=== PATIENT | female | born 1945 | race Caucasian/White ===

== ENCOUNTER 2021-08-04 20:11 | Emergency (ER) | payer MEDICARE, OTHER, SELFPAY ==
--- NOTE | ~2021-08-04 | XR_ITS ---
EXAMINATION: XR ANKLE, RIGHT CLINICAL INFORMATION: Swelling/pain COMPARISON: None TECHNIQUE: AP, lateral, and mortise views of the right ankle. FINDINGS: There is moderate lateral malleolar soft tissue swelling with a small bony fragment at the tip of the lateral malleolus most likely old injury. The ankle mortise and the subtalar joints are normal. A small calcaneal heel spur is seen. Suspect mild anterior joint effusion XR/XR ankle RT min 3V IMPRESSION: Mild to moderate lateral malleolar soft tissue swelling likely ligamentous injury. There is a small bone fragment along the medial tip of lateral malleolus likely related to old injury. Small calcaneal heel enthesophyte. Suspect mild anterior ankle joint effusion.
[2021-08-04 20:37] VITALS: BP 113/56; PULSE 81; RESP 16; TEMP 36.2; O2SAT 95; BMI 22.4
--- NOTE | 2021-08-04 20:59 | ED.LOWEXIN ---
HPI - Extremity Injury (Lower) General Chief Complaint: Extremity Injury, Lower Stated Complaint: twisted ankle? right Time Seen by Provider: 08/04/21 20:31 Source: patient Mode of arrival: ambulatory Limitations: no limitations History of Present Illness HPI Narrative: Patient comes to the emergency room complaining of a sprained ankle. Earlier today, patient was walking down the stairs, patient stepped on a loose piece of wood, nearly fall, sprain her ankle. Patient did not sustain any other injuries. Patient is not on any blood thinners. Patient states that initially she was able to bear weight, hours later the swelling and pain increased. Patient took Tylenol couple of hours ago, patient states the pain is tolerable. Patient has a walker at home which she has been using to get around her house. Related Data Allergies Allergy/AdvReac Type Severity Reaction Status Date / Time Penicillins Allergy Unknown HIVES TO Unverified 10/30/19 15:51 CILLINS Sulfa (Sulfonamide Allergy Unknown ANGIOEDEMA Unverified 10/30/19 15:51 Antibiotics) [SULFA (SULFONAMIDE ANTIBIOTICS)] Review of Systems Review of Systems: Constitutional : No Weight loss, No Fever, No Chills, No Night Sweats, No Fatigue, No Malaise ENT/Mouth : No Hearing loss, No Ear Pain, No Nasal Congestion, No Sinus Pain, No Hoarseness, No sore throat, No Rhinorrhea, No Swallowing Difficulty Eyes: No Eye Pain, No Swelling, No Redness, No Foreign Body, No Discharge, No Vision Changes Cardiovascular : No Chest Pain, No SOB, No Dyspnea on Exertion, No Orthopnea, No Edema, No Palpitations Respiratory : No Cough, No Sputum, No Wheezing, No Smoke Exposure, No Dyspnea Gastrointestinal : No Nausea, No Vomiting, No Diarrhea, No Constipation, No abdominal Pain, No Hematochezia, No Melena Genitourinary : no irregular bleeding, No Dysuria, No Urinary Frequency, No Hematuria, No Urinary Incontinence, No Urgency, No Flank Pain, No Urinary Flow Changes, No Hesitancy Musculoskeletal : Complaining of right ankle pain lateral aspect, No Myalgias, No Joint Swelling Skin : No Skin Lesions, No rash Neuro : No Weakness, No Numbness, No Paresthesias, No Loss of Consciousness, No Dizziness, No Headache Psych : No Anxiety/Panic, No Depression, No SI/HI/AH/VH, No Social Issues, Heme/Lymph: No Bruising, No Bleeding,No Lymphadenopathy Endocrine : No Polyuria, No Polydipsia, No Temperature Intolerance [facility] Social History Social History Advance Directives: No Advance Directives Information Provided: No Physical Exam Vital Signs: Vital Signs: Last Vital Signs Temp 97.2 F 08/04/21 20:37 Pulse 81 08/04/21 20:37 Resp 16 08/04/21 20:37 BP 113/56 L 08/04/21 20:37 Pulse Ox 95 08/04/21 20:37 O2 Del Method 08/04/21 20:37 BMI result Body Mass Index 22.4 Const: Other: Appearance: Alert. Oriented X3. No acute distress. well-appearing Eyes: Pupils equal, round and reactive to light. ENT: Pharynx normal. Neck: Normal inspection. Neck supple. No lymph nodes noted. No crepitus CVS: Normal heart rate and rhythm. Pulses normal. Normal S1 and S2 Respiratory: No respiratory distress. Breath sounds normal. No Wheezing. No rales Abdomen: Soft and nontender. No rigidity. No distention. Skin: Skin warm and dry. Normal skin color. Normal skin turgor. Extremities: No lower extremity edema. moderate swelling on the lateral aspect of the right ankle, mild ecchymosis, no pain to palpation over the 5th metatarsal Neuro: Oriented X 3. No motor deficit. No sensory deficit. Moving all extremities. No slurred speech. CN 2 through 12 grossly intact Psych: calm, cooperative, normal affect Course Course Course Narrative: this time, patient states that the pain is tolerable, not requesting any pain medication. X-ray pending. Mentioned above, patient has a walker that she can use.
--- NOTE | 2021-08-04 21:29 | ED.LOWEXIN ---
HPI - Extremity Injury (Lower) General Chief Complaint: Extremity Injury, Lower Stated Complaint: twisted ankle? right Time Seen by Provider: 08/04/21 20:31 Source: patient Mode of arrival: ambulatory Limitations: no limitations History of Present Illness HPI Narrative: 76 years old female came in for evaluation of right ankle injury. Patient was going downstairs missed a step of a stair and twisted her right ankle, patient was able to catch herself before she fell down, no head injury, no LOC, no neck pain. Complaining of pain on the outer side, patient unable to bear weight but able to ambulate using a walker that it sometimes she uses due to chronic right knee issue. Related Data Allergies Allergy/AdvReac Type Severity Reaction Status Date / Time Penicillins Allergy Unknown HIVES TO Unverified 10/30/19 15:51 CILLINS Sulfa (Sulfonamide Allergy Unknown ANGIOEDEMA Unverified 10/30/19 15:51 Antibiotics) [SULFA (SULFONAMIDE ANTIBIOTICS)] Review of Systems Review of Systems: All other systems are reviewed and are negative Constitutional: Reports as per HPI and Reports no additional constitutional complaints Eyes: Reports as per HPI and Reports no additional eye complaints Reports system reviewed and no additional complaints, except as documented Cardiovascular: Reports as per HPI and Reports no additional cardiovascular complaints Respiratory: Reports as per HPI and Reports no additional respiratory complaints Gastrointestinal: Reports as per HPI and Reports no additional gastrointestinal complaints Genitourinary: Reports no additional female genitourinary complaints Musculoskeletal: Reports no additional musculoskeletal complaints Skin/Breast: Reports system reviewed and no additional complaints, except as docu Psychiatric: Reports no additional psychiatric complaints Endocrine: Reports no additional endocrine complaints Hematologic/Lymphatic: Reports no additional hematologic/lymphatic complaints Allergic/Immunologic: Reports no additional allergic/immunologic complaints Reports system reviewed and no additional complaints, except as documented and Reports Abnormal speech present [facility] Social History Social History Advance Directives: No Advance Directives Information Provided: No Physical Exam Vital Signs: Vital Signs: Last Vital Signs Temp 97.2 F 08/04/21 20:37 Pulse 81 08/04/21 20:37 Resp 16 08/04/21 20:37 BP 113/56 L 08/04/21 20:37 Pulse Ox 95 08/04/21 20:37 O2 Del Method 08/04/21 20:37 BMI result Body Mass Index 22.4 Vital signs have been reviewed as appeared to be correct. Blood pressure normal. Heart rate normal. Respiration rate normal. Temperature normal. Oxygen saturation normal. Appearance: Alert. Oriented X3. No acute distress. Head: Normal external exam. Normocephalic. Atraumatic. No Dominguez signs noted. No raccoon eyes noted Eyes: PERRLA. EOMI. Conjunctiva and sclera normal. Eyelids normal. ENT: TM's Normal. Pharynx normal. Uvula midline. Moist mucous membranes. No trismus noted. No drooling noted. No muffled voice noted. Neck: Normal inspection. Neck supple. FROM. No adenopathy. Thyroid Normal. No meningeal signs. No neck mass noted. CVS: Normal heart rate and rhythm. Heart sound normal. No murmurs noted. Pulses normal throughout. Respiratory: No respiratory distress. Painless inspiration. Breath sounds normal. No wheezes/rales/rhonchi noted. Chest nontender. No accessory muscle usage noted or decreased air movement noted. Abdomen: Soft and nontender. Bowel sounds normal in all 4 quadrants. No distention noted. No organomegaly noted. No visible injury noted. Back: No CVA tenderness. Full range of motion noted. Skin: Skin warm and dry. Normal skin color. Normal skin turgor. No rashes/lesions/lacerations noted. Extremities: Right ankle exam: Tenderness over lateral malleolus with small effusion, no deformity, neurovascularly intact. Neuro: Oriented X 3. Cranial nerve exam: II-XII are grossly intact No motor deficit. No sensory deficit. Reflexes normal. Course Course Course Narrative: Assessment and plan. 76 years old female with right ankle sprain no evidence of fracture. Continue using the walker for no weight-bearing, Ramsey bandage wrap, NSAIDs, ice, elevation. MDM - Extremity Injury (Lower) Imaging Data right ankle xryas: Attestation: I personally reviewed and interpreted this imaging study as follows: Radiologist's impression: Mild to moderate lateral malleolar soft tissue swelling likely ligamentous injury. ? There is a small bone fragment along the medial tip of lateral malleolus likely related to old injury. ? Small calcaneal heel enthesophyte. ? Suspect mild anterior ankle joint effusion. Discharge Plan Discharge Clinical Impression: Ankle sprain and strain Patient Disposition: Home, Self-Care Instructions: Ankle Sprain (ED) Additional Instructions: Elevate your right ankle by inserting 2 pillows under your right ankle. Apply ice to the right ankle. Use Ramsey bandage wrap to the right ankle. No weightbear by using walker. Referrals: Mika Beasley MD [Physician] -
== END 2021-08-04 22:40 | disposition home or self-care (01) ==
PROVIDERS: Emergency Provider Emergency Medicine
DX: S93.401A Sprain of unspecified ligament of right ankle, initial encounter (principal); S96.911A Strain of unspecified muscle and tendon at ankle and foot level, right foot, initial encounter; X50.1XXA Overexertion from prolonged static or awkward postures, initial encounter; Y93.9 Activity, unspecified; Y92.9 Unspecified place or not applicable; Y99.9 Unspecified external cause status
CPT/HCPCS: 73610; 99282; 99283

== ENCOUNTER 2021-08-25 07:52 | Outpatient (REF) | payer MEDICARE, OTHER, SELFPAY ==
--- NOTE | ~2021-08-25 | XR_ITS ---
EXAMINATION: XR knee RT 2V, XR knee standing BI CLINICAL INFORMATION: Reason for Exam M25.569 - Pain in unspecified knee COMPARISON: 03/10/2021 knee radiograph TECHNIQUE: Two views of the right knee and one view of the bilateral knees standing. XR/XR knee RT 2V FINDINGS/IMPRESSION: * Chronic appearing posttraumatic deformity of the distal right femoral diaphysis. No acute fracture or dislocation. * Moderate tricompartmental degenerative changes of the right knee with loss of medial and lateral compartment joint space and tricompartmental osteophytes with a trace suprapatellar joint effusion. * Limited single AP view of the left knee demonstrates no acute osseous abnormality or significant degenerative change.
--- NOTE | ~2021-08-25 | XR_ITS ---
EXAMINATION: XR knee RT 2V, XR knee standing BI CLINICAL INFORMATION: Reason for Exam M25.569 - Pain in unspecified knee COMPARISON: 03/10/2021 knee radiograph TECHNIQUE: Two views of the right knee and one view of the bilateral knees standing. XR/XR knee standing BI FINDINGS/IMPRESSION: * Chronic appearing posttraumatic deformity of the distal right femoral diaphysis. No acute fracture or dislocation. * Moderate tricompartmental degenerative changes of the right knee with loss of medial and lateral compartment joint space and tricompartmental osteophytes with a trace suprapatellar joint effusion. * Limited single AP view of the left knee demonstrates no acute osseous abnormality or significant degenerative change.
== END 2021-08-25 07:53 | disposition home or self-care (01) ==
LOC: HO.HOSX 07:52
PROVIDERS: Visit Provider Orthopaedic Surgery
DX: M17.11 Unilateral primary osteoarthritis, right knee (principal); R26.9 Unspecified abnormalities of gait and mobility
CPT/HCPCS: 73560; 73565; 99202

== ENCOUNTER 2021-09-12 11:04 | Outpatient (RCR) | payer MEDICARE, OTHER, SELFPAY ==
--- NOTE | 2021-09-13 12:53 | MHC.PT.EP ---
[facility] [place] Office [place] Office [place] Office [address] [phone] F: [phone] F: [phone] F: [phone] F: [phone] Physical Therapy Plan of Care Date of Evaluation: Date of Surgery: Diagnosis: R ankle sprain and knee OA Assessment: Patient is a 76 year old R handed female who presents with s/s consistent with knee pain/OA and ankle sprain. She does not work but does stay active and spends 1/2 of the year in [place] and 1/2 in [place]. Patient past medical history includes sciatica. Current impairments include pain, posture, ROM, strength, activity tolerance and functional mobility. Functional limitations include decreased ability to walk, negotiate stairs and transfer. Patient is motivated with good rehab potential. Skilled PT will address impairments and functional limitations in order to achieve goals. Frequency and Duration: The patient will be seen 2x/week for 5 weeks Short Term Goals: I with HEP - 2 weeks AROM symmetrical - 3 weeks Normal/symmetrical stair mechanics - 3 weeks Residential Goals: LEFS 60/80 - 5 weeks PAin free ADLs - 5 weeks LE strength 4+/5 grossly - 5 weeks Treatment Plan: Modalities to reduce pain, spasms and effusion. Manual therapy to restore motion and function. Therapeutic exercise to improve strength and flexibility. Neuromuscular re-education for posture and balance. Therapeutic activities to return to functional activities of daily living. Electronically signed by: Roby Larose, PT Please sign and return to therapist. Thank you for your referral.
--- NOTE | 2021-11-03 09:15 | MHC.PT.DC ---
[facility] [place] Office [place] Office [place] Office [address] [phone] F: [phone] F: [phone] F: [phone] F: [phone] Physical Therapy Discharge Report Diagnosis: R ankle sprain and knee OA Date of Surgery: Date of Evaluation: 09/12/21 Date of Discharge: 10/04/21 Treatments to Date: 1 Cancellations to Date: No Shows to Date: Discharge Status: Patient Elected to Stop Discharge Summary: Pt did not return after evaluation. Patient is a 76 year old R handed female who presents with s/s consistent with knee pain/OA and ankle sprain. She does not work but does stay active and spends 1/2 of the year in [place] and 1/2 in [place]. Patient past medical history includes sciatica. Current impairments include pain, posture, ROM, strength, activity tolerance and functional mobility. Functional limitations include decreased ability to walk, negotiate stairs and transfer. Patient is motivated with good rehab potential. Skilled PT will address impairments and functional limitations in order to achieve goals. Electronically signed by: Roby Larose, PT Please sign and return to therapist. Thank you for your referral.
== END 2021-11-03 09:16 | disposition home or self-care (01) ==
LOC: HO.PTCHIC 11:04
PROVIDERS: Visit Provider Orthopaedic Surgery
DX: M17.11 Unilateral primary osteoarthritis, right knee (principal); R26.9 Unspecified abnormalities of gait and mobility; S93.401A Sprain of unspecified ligament of right ankle, initial encounter
CPT/HCPCS: 97110; 97162

== ENCOUNTER 2022-08-27 13:25 | Emergency (ER) | payer MEDICARE, OTHER, SELFPAY ==
[2022-08-27 13:35] VITALS: BP 125/62; PULSE 71; RESP 16; TEMP 36; O2SAT 96; BMI 22.5
--- NOTE | 2022-08-27 13:35 | ED_ITS ---
HPI - Wound/Laceration General Chief Complaint: Skin/Abscess/Foreign Body Stated Complaint: wound on knee 9wks, rash Time Seen by Provider: 08/27/22 14:33 History of Present Illness HPI narrative: Patient is a 77-year-old female presents emergency department for evaluation of a red rash surrounding her right knee. Patient reports an extensive history of infection from an initial wound she sustained to the knee 9 weeks ago. She has taken multiple courses of antibiotics. Approximately 3 weeks ago the wound had reopened after she ?nicked it?, and she had the area covered with a bandage. She had also been applying topical antibiotic creams to it. She saw her primary care provider on 08/24/2022 and she received a prescription for doxycycline which she began taking yesterday, has only taken 2 doses at this time. She does report that the raised red rash surrounding the lateral and medial aspect of the wound on her knee began before taking the doxycycline. She is able to walk on the leg normally, fully weightbear, has no swelling or erythema to the distal leg, no pain in the calf, no numbness or tingling, no cold sensation to the foot, no recent injury or trauma, no history of DVT/PE. Related Data Home Medications Medication Instructions Recorded Confirmed ezetimibe 10 mg tablet 10 mg PO DAILY 08/25/21 levothyroxine 88 mcg tablet 0 mcg PO 08/25/21 lorazepam 0.5 mg tablet 0.5 mg PO BID PRN 08/25/21 mirtazapine 7.5 mg tablet 7.5 mg PO BEDTIME 08/25/21 pantoprazole 40 mg tablet,delayed 40 mg PO DAILY 08/25/21 release sennosides 8.6 mg-docusate sodium 1 tab PO DAILY PRN constipation 08/25/21 50 mg tablet (Senna Plus) Allergies Allergy/AdvReac Type Severity Reaction Status Date / Time Penicillins Allergy Unknown HIVES TO Verified 08/27/22 13:42 CILLINS Sulfa (Sulfonamide Allergy Unknown ANGIOEDEMA Verified 08/27/22 13:42 Antibiotics) [SULFA (SULFONAMIDE ANTIBIOTICS)] Review of Systems Review of Systems: Yes all other systems are reviewed and are negative PMFSH Past Medical History Attestation statement: The following information was validated with the patient. Source: old records reviewed Social History Social History (Updated 08/25/21 @ 10:51 by ROYA Phillip) Advance Directives: No Advance Directives Information Provided: Yes Current occupational status: retired Current occupation: rt hand Physical Exam Vital Signs: Vital Signs: Last Vital Signs Temp 97.5 F 08/27/22 14:52 Pulse 60 08/27/22 14:52 Resp 18 08/27/22 14:52 BP 108/67 08/27/22 14:52 Pulse Ox 97 08/27/22 14:52 O2 Del Method Room Air 08/27/22 14:52 BMI result Body Mass Index 22.5 Appearance: Alert.?Oriented to person, place and time. No acute distress.?Normal affect. Eyes: Pupils equal, round and reactive to light.? ENT: Pharynx normal.?? Neck: Normal inspection.? Neck supple.?? CVS: Heart sounds normal. Normal heart rate and rhythm.? Pulses normal.?? Respiratory: No respiratory distress.? Lung sounds clear to auscultation bilaterally?? Abdomen: Soft and non-tender. Normoactive bowel sounds. ?? Skin: Skin warm and dry.? Normal skin color.? Extremities: No lower extremity edema.? No calf ttp?right knee with erythematous keloid scarring over the patella, the lateral and medial aspect of the knee with rectangular patch of papulovesicular eruption appearing consistent with a contact dermatitis Neuro: Moves all extremities spontaneously. Sensation intact bilaterally. No focal neuro deficits. Ambulates with normal steady gait. Course Course Course Narrative: SONNY- 13:36pm - 76yoF presenting to the ED with c/o of rash/redness around her right knee where she had a wound 9 weeks ago then nicked it 3 weeks ago therefore In was covering it . Went to PCP on Sunday after she sent a message for Ortho referral and they decided she should be seen and due to the red rash she was given a RX for abx's on Sunday although she did not start the abx's until Sunday and its still not helping rash , per patient. She was seen by a PA-C at [facility] on Sunday. She does admit that she had a bandaide covering her scar a few days prior although not recently. She did have blood work and she was told her white blood cell count was low. Otherwise she denies any fevers or chills, leg swelling or calf tenderness recent falls or new injuries or any other symptoms complaints or concerns at this time. I explained to the patient it appears like a contact dermatitis from possibly the Band-Aid there is no warmth/erythema to the knee. She has full range of motion. Not consistent with septic joint. [place] [facility] [place]. Medical Decision Making Medical Decision Making [facility] Narrative: Patient is a 77-year-old female who presents emergency department for evaluation of a rash present to the knee as per HPI. She is currently taking doxycycline for presumed cellulitis surrounding her keloid scarring of the right knee. There is mild erythema and swelling surrounding the scar. The rash that brought her to the emergency department is consistent with a contact dermatitis, appears to be in the form of a bandage that was previously covering the knee, she states she has not had a Band-Aid over this in a few days. She denies applying any topical antibiotic ointments to the knee for at least 1 week. It is nonpainful, mildly pruritic. The knee itself is overall unremarkable upon examination, no significant effusion, no erythema, no warmth, no deformity. Does not appear consistent with septic joint. She is afebrile without tachycardia. Advised patient to no longer apply any type of topical ointments or any type of bandage over the knee. Recommended outpatient follow-up with her primary care provider, continued management with doxycycline as per her primary care provider's recommendations. At this time she is stable for discharge. Differential Diagnosis Differential Diagnoses: The differential diagnosis associated with the presentation includes (As noted above) Prescription Management I considered prescription management with: Other (Topical corticosteroid and/or topical antibiotic ointment however given multiple treatments recently in persistent symptoms, would avoid any potential allergen that may further worsen this dermatitis) Discharge Plan Discharge Clinical Impression: Dermatitis Patient Disposition: Home, Self-Care Instructions: Dermatitis (ED) Additional Instructions: As discussed please refrain from putting any topical creams, ointments, lotions or bandages over the knee. Continue taking your antibiotics as prescribed by your doctor for the skin infection. Contact their office to arrange for a follow-up visit within the next 3 days. Prescriptions: No Action sennosides-docusate sodium [Senna Plus] 8.6-50 mg tablet 1 tab PO DAILY PRN (Reason: constipation) mirtazapine 7.5 mg tablet 7.5 mg PO BEDTIME ezetimibe 10 mg tablet 10 mg PO DAILY levothyroxine 88 mcg tablet 0 mcg PO pantoprazole 40 mg tablet,delayed release (DR/EC) 40 mg PO DAILY lorazepam 0.5 mg tablet 0.5 mg PO BID PRN Referrals: Tristen Garcia MD [Primary Care Provider] -
[2022-08-27 14:52] VITALS: BP 108/67; PULSE 60; RESP 18; TEMP 36.4; O2SAT 97
== END 2022-08-27 16:51 | disposition home or self-care (01) ==
PROVIDERS: Emergency Provider Student in an Organized Health Care Education/Training Program; PCP Internal Medicine
DX: L30.9 Dermatitis, unspecified (principal); Z79.899 Other long term (current) drug therapy
CPT/HCPCS: 99283

== ENCOUNTER → 2023-07-30 08:59 | Outpatient (BNVA) | payer MEDICARE, OTHER, SELFPAY | PROVIDERS: PCP Internal Medicine | DX: Z01.818 Encounter for other preprocedural examination (principal) ==

== ENCOUNTER 2023-08-02 09:37 | Outpatient (AMB) | payer MEDICARE, OTHER, SELFPAY ==
--- NOTE | 2023-08-02 09:49 | MHC.OFFVIS ---
Intake Visit Reasons: R TKA w/NE 08/07/23 Intake Note: Serenity Roldan is a 78 year old female who presents today for a pre operative appointment. She is scheduled to have a Right TKA on 08/07/23 Allergies Penicillins Allergy (Severe, Verified 07/31/23 12:24) HIVES TO CILLINS Sulfa (Sulfonamide Antibiotics) [SULFA (SULFONAMIDE ANTIBIOTICS)] Allergy (Severe, Verified 07/31/23 12:24) ANGIOEDEMA ibuprofen Allergy (Intermediate, Verified 07/31/23 12:25) Swelling of feet gabapentin Adverse Reaction (Severe, Verified 07/31/23 12:26) Hallucinations HPI HPI R TKA w/NE 08/07/23: Details: This is a 78 yo F scheduled for a right TKA next week. She states she has been feeling well s/p but has been taking is easy. She hbas been medically cleared for surgery. She has tried and failed injections, PT and she does not tolerated NSAIDs. She feels unable to engage in meaningful daily activities and feels the quality of her life is diminished as a result. [facility] Medical History (Updated 07/31/23 @ 12:31 by Chula Dye RN) Diverticulosis Hypothyroidism History of fibromyalgia Hx pulmonary embolism (~1971) Osteoarthritis Osteoporosis Diverticulosis GERD (gastroesophageal reflux disease) History of palpitations Constipation Insomnia Personal history of COVID-19 (~09/2020) Anxiety Raynaud's disease Elevated cholesterol Neuropathy Surgical History (Updated 07/31/23 @ 12:01 by Chula Dye RN) Hx of tonsillectomy History of esophagogastroduodenoscopy (EGD) Hx of colonoscopy Hx of bilateral cataract extraction Family History (Updated 07/31/23 @ 12:05 by Chula Dye RN) Brother Complication of anesthesia Social History (Updated 07/31/23 @ 12:36 by Chula Dye RN) Household Members: Family Housing: House Are you a primary auto care center manager to a significant other at home: No Do you presently have visiting nurse or other home services: No 75 years or older and lives alone: No Comment: aware of trip hazards Patient Tobacco Use Status: Former Tobacco user Tobacco use type: Cigarette Current occupational status: retired Current occupation: rt hand Physical Exam Const General: cooperative, healthy appearing, no acute distress, well developed and alert HEENT Head: Yes normal to inspection, Yes normocephalic and Yes atraumatic Mouth: moist mucous membranes Eyes General: appearance normal, both eyes and all related structures EOM: EOMs intact bilaterally Chest Other: no audible wheezing. Resp Other: No audible wheezing Effort & Inspection: normal respiratory effort Cardio Other: Radial pulse palpable with no rythmic abnormalities Back/Spine/Pelvis Cervical Spine: normal cervical lordosis Skin General skin exam: no rashes or lesions noted Neuro General: no focal motor deficits Extrem Other: Right Knee: Mild effusion posteriorly Medial joint line TTP Full ROM Stable to V/V stress Psych Appearance: grossly normal and well kempt Mental Status: mental status grossly normal Speech and movement: Normal speech and movement present Affect: normal affect Attitude: cooperative Results Reviewed Results Reviewed: I personally reviewed relevant radiographs. moderate tricompartmental right knee OA I personally reviewed the MR report from outside facity which demonbstrates moderate OA and medial mniscus extrusion with degenerative tearing Assessment & Plan Assessment & Plan (1) Osteoarthritis of right knee: Code(s): M17.11 - Unilateral primary osteoarthritis, right knee Category: Medical Plan: This is a 78 yo F with moderate tricompartmental OA of the right knee. She has been scheduled and cleared for right TKA. I discussed the risks benefits and alternatives including but not limited to the risk of pain, infection, stiffness, need for further surgery as well as potential medical complications such as blood clots, pulmonary embolism and cardiac complications. She has a remote history of PE and will be treated with chemoprophylactic agent post operatively. I discussed this with her and she expressed understanding. Coding Level of Care Code Global (43704) Diagnoses Osteoarthritis of right knee M17.11
== END 2023-08-02 13:30 | disposition home or self-care (01) ==
PROVIDERS: PCP Internal Medicine; Visit Provider Orthopaedic Surgery
DX: M17.11 Unilateral primary osteoarthritis, right knee (principal)
CPT/HCPCS: 99024

== ENCOUNTER → 2023-08-02 09:37 | Outpatient (BNVA) | payer MEDICARE, OTHER, SELFPAY | PROVIDERS: PCP Internal Medicine; Visit Provider Orthopaedic Surgery | DX: M17.11 Unilateral primary osteoarthritis, right knee (principal) | CPT/HCPCS: 99212 ==

== ENCOUNTER 2023-08-07 07:40 | Inpatient (IN) | payer MEDICARE, OTHER, SELFPAY ==
[2023-07-31 12:36] VITALS: BP 122/65; PULSE 68; RESP 16; O2SAT 98; BMI 23.0
--- NOTE | 2023-07-31 12:52 | P.CONAN_ITS ---
Documented by User: Brisa Denny NP 07/31/23 13:04 HPI - Anesthesia Eval Consult details Narrative: 78yo F for Right Knee Replacement Total Medically optimized per PCP No recent illness No CP/SOB within limits of pain GERD: ppi daily controls PE: 1971 post fx PMFSH Active Problems Active Problems: All Active Problems Sciatica associated with disorder of lumbar spine (Acute) Gait disturbance (Acute) Right ankle sprain (Acute) Osteoarthritis of right knee (Acute) Past Medical History Medical History Diverticulosis Hypothyroidism History of fibromyalgia Hx pulmonary embolism (~1971) Osteoarthritis Osteoporosis Diverticulosis GERD (gastroesophageal reflux disease) History of palpitations Constipation Insomnia Personal history of COVID-19 (~09/2020) Anxiety Raynaud's disease Elevated cholesterol Neuropathy Family History Family History Brother Complication of anesthesia Family history of problems with anesthesia: Yes (Unknown) Surgical History Surgical History Hx of tonsillectomy History of esophagogastroduodenoscopy (EGD) Hx of colonoscopy Hx of bilateral cataract extraction History of Problems with Anesthesia: No (Never rec'd general) Social History Social History Household Members: Family Housing: House Are you a primary resident care manager to a significant other at home: No Do you presently have visiting nurse or other home services: No Comment: aware of trip hazards Patient Tobacco Use Status: Former Tobacco user Tobacco use type: Cigarette Smoked in Last 30 Days: No Use of substances other than those prescribed or required for medical reasons: No Have you been hit, kicked, punched, or otherwise hurt by someone within the past year? If so, by whom?: No Are you DNR?: No Advance Directives: No Advance Directives Information Provided: Yes Advance Directives on File: No Recently lost weight without trying: No Nutrition Risks: Surgical patient >75years Poor oral hygiene: No Current occupational status: retired Current occupation: rt hand Meds Allergies Allergy/AdvReac Type Severity Reaction Status Date / Time Penicillins Allergy Severe HIVES TO Verified 07/31/23 12:24 CILLINS Sulfa (Sulfonamide Allergy Severe ANGIOEDEMA Verified 07/31/23 12:24 Antibiotics) [SULFA (SULFONAMIDE ANTIBIOTICS)] ibuprofen Allergy Intermediate Swelling Verified 07/31/23 12:25 of feet gabapentin AdvReac Severe Hallucinati Verified 07/31/23 12:26 ons Home Medications ?Medication ?Instructions ?Recorded ?Confirmed ?Last Taken ?Type ezetimibe 10 mg tablet 10 mg PO DAILY 08/25/21 07/31/23 Unknown History levothyroxine 88 mcg tablet 88 mcg PO DAILY 08/25/21 07/31/23 Unknown History lorazepam 0.5 mg tablet 0.5 mg PO BEDTIME PRN Insomnia 08/25/21 07/31/23 Unknown History atorvastatin 10 mg tablet 10 mg PO BEDTIME 07/30/23 07/31/23 Unknown History ascorbate calcium (vitamin C) 500 500 mg PO DAILY 07/31/23 07/31/23 Unknown History mg tablet aspirin 81 mg capsule 81 mg PO DAILY 07/31/23 07/31/23 Unknown History calcium 400 mg PO BID 07/31/23 07/31/23 Unknown History denosumab 60 mg/mL subcutaneous 60 mg subcut [id number] 07/31/23 07/31/23 Unknown History syringe (Prolia) digestive enzymes 2 cap PO TID 07/31/23 07/31/23 Unknown History doxylamine succinate 25 mg tablet 12.5 mg PO BEDTIME PRN Insomnia 07/31/23 07/31/23 Unknown History (Sleep Aid (doxylamine)) magnesium oxide 500 mg capsule 500 mg PO BEDTIME 07/31/23 07/31/23 Unknown H istory lwebaher-hjgh-tjhv 8 mg-folic 400 1 tab PO DAILY 07/31/23 07/31/23 Unknown History mcg-K 50 mcg-lutein 300 mcg tablet (Multivitamin Women 50 Plus) pantoprazole 20 mg tablet,delayed 20 mg PO DAILY 07/31/23 07/31/23 Unknown History release polyethylene glycol 3350 17 17 g PO DAILY 07/31/23 07/31/23 Unknown History gram/dose oral powder (Miralax) Exam Height,Weight and Vital Signs: Height 5 ft 5 in Weight 62.596 kg Last Vital Signs Pulse 68 07/31/23 12:36 Resp 16 07/31/23 12:36 BP 122/65 07/31/23 12:36 Pulse Ox 98 07/31/23 12:36 O2 Del Method Room Air 07/31/23 12:36 Pertinent Lab Results Pertinent Lab Results: CBC and BMP 07/16/23 WNL Narrative Narrative: EKG 07/2023 NSR Airway Mallampati Class: II TM Dist: >3cm Neck ROM: Full Loose/Missing/Broken Teeth: No (2 x molar implants) Heart: RRR Lungs: CTAB Assessment and Plan Assessment Anesthesia Assessment: Anesthesia Plan Discussed and PAT Visit Final Anesthetic Review Family History of Problems with Anesthesia: Yes (Unknown) History of Problems with Anesthesia: No (Never rec'd general) Documented by User: Corrie Lamb MD 08/07/23 08:00 PMFSH Past Medical History Medical History Diverticulosis Hypothyroidism History of fibromyalgia Hx pulmonary embolism (~1971) Osteoarthritis Osteoporosis Diverticulosis GERD (gastroesophageal reflux disease) History of palpitations Constipation Insomnia Personal history of COVID-19 (~09/2020) Anxiety Raynaud's disease Elevated cholesterol Neuropathy Family History Family History Brother Complication of anesthesia Surgical History Surgical History Hx of tonsillectomy History of esophagogastroduodenoscopy (EGD) Hx of colonoscopy Hx of bilateral cataract extraction Social History Social History Household Members: Family Housing: House Are you a primary resident care manager to a significant other at home: No Do you presently have visiting nurse or other home services: No Comment: aware of trip hazards Patient Tobacco Use Status: Former Tobacco user Tobacco use type: Cigarette Smoked in Last 30 Days: No Use of substances other than those prescribed or required for medical reasons: No Have you been hit, kicked, punched, or otherwise hurt by someone within the past year? If so, by whom?: No Are you DNR?: No Advance Directives: No Advance Directives Information Provided: Yes Advance Directives on File: No Recently lost weight without trying: No Nutrition Risks: Surgical patient >75years Poor oral hygiene: No Current occupational status: retired Current occupation: rt hand Meds Allergies Allergy/AdvReac Type Severity Reaction Status Date / Time Penicillins Allergy Severe HIVES TO Verified 07/31/23 12:24 CILLINS Sulfa (Sulfonamide Allergy Severe ANGIOEDEMA Verified 07/31/23 12:24 Antibiotics) [SULFA (SULFONAMIDE ANTIBIOTICS)] ibuprofen Allergy Intermediate Swelling Verified 07/31/23 12:25 of feet gabapentin AdvReac Severe Hallucinati Verified 07/31/23 12:26 ons Home Medications ?Medication ?Instructions ?Recorded ?Confirmed ?Last Taken ?Type ezetimibe 10 mg tablet 10 mg PO DAILY 08/25/21 07/31/23 Unknown History levothyroxine 88 mcg tablet 88 mcg PO DAILY 08/25/21 07/31/23 Unknown History lorazepam 0.5 mg tablet 0.5 mg PO BEDTIME PRN Insomnia 08/25/21 07/31/23 Unknown History atorvastatin 10 mg tablet 10 mg PO BEDTIME 07/30/23 07/31/23 Unknown History ascorbate calcium (vitamin C) 500 500 mg PO DAILY 07/31/23 07/31/23 Unknown History mg tablet aspirin 81 mg capsule 81 mg PO DAILY 07/31/23 07/31/23 Unknown History calcium 400 mg PO BID 07/31/23 07/31/23 Unknown History denosumab 60 mg/mL subcutaneous 60 mg subcut [id number] 07/31/23 07/31/23 Unknown History syringe (Prolia) digestive enzymes 2 cap PO TID 07/31/23 07/31/23 Unknown History doxylamine succinate 25 mg tablet 12.5 mg PO BEDTIME PRN Insomnia 07/31/23 07/31/23 Unknown History (Sleep Aid (doxylamine)) magnesium oxide 500 mg capsule 500 mg PO BEDTIME 07/31/23 07/31/23 Unknown History kwmyogon-ahni-dppm 8 mg-folic 400 1 tab PO DAILY 07/31/23 07/31/23 Unknown History mcg-K 50 mcg-lutein 300 mcg tablet (Multivitamin Women 50 Plus) pantoprazole 20 mg tablet,delayed 20 mg PO DAILY 07/31/23 07/31/23 Unknown History release polyethylene glycol 3350 17 17 g PO DAILY 07/31/23 07/31/23 Unknown History gram/dose oral powder (Miralax) Assessment and Plan Final Anesthetic Review ASA Class: II Final Preanesthetic Review: No Changes in Pt Med Stat, Meds/Allgs Chart Reviewed, Consent Obtained/Reviewed and Anes Risks/Benef Reviewed Patient Risk: Intermediate Procedure Risk: Intermediate Anesthetic Plan Anesthetic Plan: MAC: Disposition: Standard PACU
[2023-07-31 14:47] LABS: MRSA Nasal PCR NEGATIVE (Negative); SA Nasal PCR NEGATIVE (Negative)
[2023-08-07] VITALS (10 sets, daily range): BP systolic 92–117; BP diastolic 42–69; PULSE 59–74; RESP 12–18; TEMP 36–36.8; O2SAT 95–100; BMI 23.0
--- NOTE | ~2023-08-07 | XR_ITS ---
EXAMINATION: XR KNEE, RIGHT CLINICAL INFORMATION: Status post total knee arthroplasty COMPARISON: Radiographs 08/25/2021 TECHNIQUE: AP and lateral views of the right knee. FINDINGS: The cemented total knee arthroplasty components are in the usual position and alignment without evidence of loosening or fracture. Skin tania overlie the operative site. Partial visualization of the remote, healed distal femur fracture. XR/XR knee RT 2V IMPRESSION: Standard postoperative appearance of the right total knee arthroplasty.
--- NOTE | 2023-08-07 07:49 | PM.DS ---
DS: Providers Provider Date of Service: 08/08/23 Primary care physician: Tristen Garcia MD DS: Summary Hospital Course Hospital Course: The patient underwent a successful right total knee arthroplasty, they were transferred to PACU and then to the floor to recover. During their stay, their vitals were stable, afebrile at 96.9. Labs were unremarkable, H/H 11.3/32.9. POD 1 they were started on Lovenox for DVT ppx, they also received Physical Therapy services twice a day. Patient request a second block which was performed by anesthesia POD1. Prior to discharge, their dressing was clean dry and intact, and the plan was to be discharged home with VNA services. Time Attestation Discharge Coordination Time (in mins): 30 Quality: Safe Use of Opioids Does Pt have an Active Cancer Diagnosis on the Problem List?: No Quality: Stroke Does the patient have a stroke diagnosis?: No Physical Exam Vital Signs: Vital Signs: Last Vital Signs Pulse 68 07/31/23 12:36 Resp 16 07/31/23 12:36 BP 122/65 07/31/23 12:36 Pulse Ox 98 07/31/23 12:36 O2 Del Method Room Air 07/31/23 12:36 BMI result Body Mass Index 23.0 Const: General: cooperative, healthy appearing and no acute distress Resp: Effort & Inspection: normal respiratory effort and able to speak in complete sentences Cardio: Rate: regular rate Peripheral pulses: Peripheral pulses 2+ throughout GI: Palpation (GI): Soft to palpation Skin: Lesions: no lesions Rashes: no rashes Extrem: Other: right knee dressing is c/d/i. Able to dorsi/plantar flex. Calf is supple and nontender. Sensation intact. Pedal pulse intact. Discharge Plan Discharge Anticipated Discharge Date/Time: 08/08/23 13:48 Patient Disposition: Home Health Service Discharge Diagnosis: s/p RTKA Referrals: Paulino Gregorio PA-C [Physician Industrial [employer] Systems Designer] - 08/23/23 11:30 am Discharge Medications: New acetaminophen 325 mg Tablet 650 mg PO Q6H PRN (Reason: Pain, Mild (Pain Scale 1-3), fever or headache) 30 Days Qty: 240 0RF docusate sodium 100 mg Capsule 100 mg PO BID 30 Days Qty: 60 0RF oxycodone 5 mg Tablet 5 mg PO Q4H PRN (Reason: Pain, Moderate(Pain Scale 4-6)) 7 Days Qty: 42 0RF Rx Instructions: Partial Fill upon patient request. enoxaparin 40 mg/0.4 mL Syringe 40 mg subcut Q24H 42 Days Qty: 16.8 0RF Continued (DME) walker Misc See Rx Instructions .MEDSUPPLY Qty: 1 0RF Rx Instructions: Folding Front wheeled walker digestive enzymes Capsule 2 cap PO TIDAC Patient Comments: tid with food Rx Instructions: administer with food; swallow whole; do not crush/chew/dissolve/break/cut Prolia 60 mg/mL Syringe 60 mg SUBCUT [id number] Patient Comments: Patient was due to receive 08/10/23, however was postponed due to surgery. pantoprazole 20 mg Tablet,Delayed Release (Dr/Ec) 20 mg PO DAILY@0630 ascorbate calcium (vitamin C) 500 mg Tablet 500 mg PO DAILY Sleep Aid (doxylamine) 25 mg Tablet 12.5 mg PO BEDTIME PRN (Reason: Insomnia) polyethylene glycol 3350 [Miralax] 17 gram/dose Powder 17 g PO DAILY magnesium oxide 500 mg Capsule 500 mg PO BEDTIME Multivitamin Women 50 Plus 8 mg iron-400 mcg-50 mcg Tablet 1 tab PO DAILY aspirin 81 mg Capsule 81 mg PO DAILY calcium 400 mg PO BEDTIME Patient Comments: tabs-calcium 200 mg with Vitamin D3 6.25 mg ezetimibe 10 mg tablet 10 mg PO DAILY levothyroxine 88 mcg tablet 88 mcg PO DAILY@0600 lorazepam 0.5 mg tablet 0.5 mg PO BEDTIME PRN (Reason: Insomnia) atorvastatin 10 mg tablet 10 mg PO BEDTIME Discharge Orders: Discharge Order (Routine); Ordered 08/08/23 Ordered By: Verena Laird Diet: Advance to usual diet Activity on Discharge: Use cane or walker Stand Alone Forms: Patient Portal Discharge page Print Language: Palauan Care Plan Goals: restore fxn to right knee Health Concerns: none Plan of Treatment: Physical Therapy for ROM 0-120, quad strength, gait training. Use walker for ambulation Limit stair climbing, No shower, No tub bath, No driving Continue anticoagulant x 6 weeeks Keep Aquacel dressing clean, dry and intact. Follow up with orthopedics in 2 weeks Assessment: stable for d/c
--- NOTE | 2023-08-07 07:50 | P.F2F_ITS ---
Service Date Service Date: 08/08/23 Encounter Date of encounter: 08/08/23 Reasons for Services Signs and symptoms assessed: s/p RTKA Pt. is considered homebound due to recent surgery. Unable to drive, poor balance, poor gait mechanics. Reason for physical therapy: home safety and mobility, therapeutic exercises, restore joint function, gait/transfer training, assess need for DME and ADL training Homebound: Leaving the home is medically contraindicated at this time without the asist of a device and/or another person due th the listed conditions above and below. Reason homebound: unsteady gait / fall risk, leg weakness, pain with ambulation, pain with transfers, poor balance / fall risk and unable to drive Certification: Based on the above findings, I certify that this patient is confined to the home and needs intermittent long-term care, physical therapy and/or speech therapy, or continues to need occupational therapy. The patient is under my care, and I have initiated the establishment of the plan of care. The patient will be followed by a physician who will periodically review the plan of care. Time Spent With Patient Time: Total time managing care of this patient today ____ minutes.
--- NOTE | 2023-08-07 07:51 | MHC.SHP ---
Pre-Procedural Eval Section A - 24 Hr Update-Section A only Date of Service: 08/07/23 The patient is an INPATIENT: No Changes since office visit: No Cold of Flu in the past 2 weeks, No New Medical Problems, No Changes in Medication and No Patient answered all questions The patient has been examined within 24 hours of the surgical procedure. The History & Physical has been completed within 30 days and I have reviewed it.: Yes Section B - Complete if H&P > 30 days Chief Complaint: Rt TKA Allergies: Allergies Allergy/AdvReac Type Severity Reaction Status Date / Time Penicillins Allergy Severe HIVES TO Verified 07/31/23 12:24 CILLINS Sulfa (Sulfonamide Allergy Severe ANGIOEDEMA Verified 07/31/23 12:24 Antibiotics) [SULFA (SULFONAMIDE ANTIBIOTICS)] ibuprofen Allergy Intermediate Swelling Verified 07/31/23 12:25 of feet gabapentin AdvReac Severe Hallucinati Verified 07/31/23 12:26 ons Plan I have reviewed the history and physical and performed a pertinent physical examination on my patient. No changes have occurred unless specified. Time Spent With Patient Time: Total time managing care of this patient today ____ minutes.
[2023-08-07] MEDS: Lactated Ringers 1,000 ML 100 ML IVCONT ×3 (08:01→22:00)
--- NOTE | 2023-08-07 10:35 | PM.OP ---
Brief Operative Note Date of Service: 08/07/23 Pre-op diagnosis: Right knee OA Post-op diagnosis: same Procedure: Right TKA Implants: Dheeraj Triathlon posterior stabilized cemented 03/16/10/a Surgeon: Mika Beasley MD Anesthesia: regional and spinal Was an Ambulance Assistant used for this Procedure?: Yes Ambulance Assistant: Verena Laird Estimated blood loss (mL): 20 Tourniquet time (min): 50 IV fluids (mL): 850 Pathology: other Condition: stable Disposition: PACU
--- NOTE | 2023-08-07 12:20 | PHA.MEDREC ---
Addendum entered by Grace Freeman RPh 08/07/23 13:17: Patient's Prolia due to receive 08/10/23, however was postponed due to surgery. Original Note: Pharmacy Consult ? Medication Reconciliation Pharmacy has completed the medication reconciliation. Utilized patient list
[2023-08-07] MEDS: oxyCODONE HCl Immed Release 5 MG TABLET PO ×2 (15:17→23:05)
[2023-08-07] MEDS: Acetaminophen 325 MG TABLET 650 MG PO ×2 (15:20→23:05)
[2023-08-07] MEDS: Clindamycin HCL 300 MG CAPSULE 900 MG PO (15:21)
[2023-08-07] MEDS: HYDROmorphone HCl 0.5 MG/0.5 ML SYRINGE 0.25 MG IVPUSH (20:12)
[2023-08-07] MEDS: Atorvastatin Calcium 10 MG TABLET PO (20:12)
[2023-08-07] MEDS: Magnesium Oxide 400 MG TABLET 500 MG PO (20:12)
[2023-08-07] MEDS: Docusate Sodium 100 MG CAPSULE PO (20:13)
[2023-08-07] MEDS: Calcium Oyster Shell Elemental 500 MG TABLET PO (20:13)
[2023-08-07] MEDS: oxyCODONE HCl ER 10 MG TAB.ER.12H PO (20:13)
[2023-08-07] MEDS: Ezetimibe 10 MG TABLET PO (20:21)
[2023-08-07] MEDS: LORazepam 0.5 MG TABLET PO (23:05)
--- NOTE | 2023-08-07 23:50 | PC.NURSE ---
zetia given as an unscheduled dose pt states takes it at bedtime not in the morning.
[2023-08-08] MEDS: HYDROmorphone HCl 0.5 MG/0.5 ML SYRINGE 0.25 MG IVPUSH ×2 (00:23→04:56)
[2023-08-08 04:00] VITALS: BP 129/62; PULSE 75; RESP 16; TEMP 36.8; O2SAT 96
[2023-08-08] MEDS: Omeprazole 20 MG CAPSULE.DR PO (04:57)
[2023-08-08] MEDS: Levothyroxine Sodium 88 MCG TABLET PO (04:57)
[2023-08-08 06:31] LABS: MANUAL DIFF FLAG NO
[2023-08-08 06:41] LABS: Basophils Percent Auto 0.1 % (0-2); Hematocrit 32.9 % (37.0-47.0); Hemoglobin 11.3 g/dl (12.0-16.0); Imm Gran Abs Auto 0.06 X10*3/uL (0.00-0.03); Imm Gran Pct Auto 0.6 % (0.0-0.4); Lymphocytes Absolute Auto 1.1 X10*3/uL (1.2-4.9); Mean Corpuscular HGB Conc 34.3 g/dl (31.0-35.0); Mean Corpuscular Hemoglobin 31.7 pg (27.0-33.0); Mean Corpuscular Volume 92.2 fL (80.0-98.0); Mean Platelet Volume 9.1 fL (9.4-12.3); Monocytes Absolute Auto 1.5 X10*3/uL (0.1-1.2); Monocytes Percent Auto 13.9 % (2-11); Neutrophils Percent Auto 75.4 % (45-73); Platelet Count 228 X10*3/uL (160-400); Red Blood Count 3.57 X10*6/uL (4.20-5.50); Red Cell Distribution Width 13.6 % (11.0-16.0); White Blood Count 10.6 X10*3/uL (4.8-10.8)
[2023-08-08 06:55] LABS: Anion Gap 12 (12-20); Blood Urea Nitrogen 14 mg/dL (9-16); Calcium 8.4 mg/dL (8.4-10.2); Carbon Dioxide 23 mmol/L (22-29); Chloride 102 mmol/L (96-108); Creatinine Clr Calc Pharmacy 70.6; Estimated Glomerular Filt Rate > 60; Glucose Fasting 118 mg/dL (60-99); Potassium 3.9 mmol/L (3.3-5.1); Sodium 133 mmol/L (135-145)
[2023-08-08 07:11] VITALS: BP 123/60; PULSE 72; RESP 18; TEMP 36.1; O2SAT 97
[2023-08-08] MEDS: Lactated Ringers 1,000 ML 100 ML IVCONT (07:18)
[2023-08-08] MEDS: polyethylene glycoL 3350 17 GM POWD.PACK PO (07:19)
[2023-08-08] MEDS: Docusate Sodium 100 MG CAPSULE PO (07:20)
[2023-08-08] MEDS: Calcium Oyster Shell Elemental 500 MG TABLET PO (07:20)
[2023-08-08] MEDS: oxyCODONE HCl ER 10 MG TAB.ER.12H PO (07:20)
[2023-08-08] MEDS: oxyCODONE HCl Immed Release 5 MG TABLET PO ×2 (07:21→12:55)
[2023-08-08] MEDS: Ascorbic Acid 500 MG TABLET PO (07:21)
[2023-08-08] MEDS: Multivitamin TABLET 1 TAB PO (07:21)
[2023-08-08] MEDS: Acetaminophen 325 MG TABLET 650 MG PO (07:21)
--- NOTE | 2023-08-08 07:57 | PM.PNORT ---
Subjective Subjective Date of Service: 08/08/23 Interval history: POD1 s/p RTKA Patient is resting in bed comfortably No overnight events Pain is reportedly poorly managed No additional complaints Physical Exam Vital Signs: Vital Signs: Last Vital Signs Temp 96.9 F 08/08/23 07:11 Pulse 72 08/08/23 07:11 Resp 18 08/08/23 07:11 BP 123/60 08/08/23 07:11 Pulse Ox 97 08/08/23 07:11 O2 Del Method Room Air 08/08/23 07:11 O2 Flow Rate 6 08/07/23 11:05 BMI result Body Mass Index 23.0 Const: General: cooperative, healthy appearing and no acute distress Resp: Effort & Inspection: normal respiratory effort and able to speak in complete sentences Cardio: Rate: regular rate Peripheral pulses: Peripheral pulses 2+ throughout GI: Palpation (GI): Soft to palpation Skin: Lesions: no lesions Rashes: no rashes Extrem: Other: right knee dressing is c/d/i. Able to dorsi/plantar flex. Calf is supple and nontender. Sensation intact. Pedal pulse intact. Procedures Date of Service Date of Service: 08/08/23 Progress Note: A&P Assessment and plan (1) Status post total knee replacement, right: Status: Acute Plan Continue pain mgmnt Begin Lovenox for dvt ppx begin PT for RTKA Dispo planning-Pending PT eval, pain mgmnt Time Spent With Patient Time: Total time managing care of this patient today ____ minutes. Quality Stroke Does the patient have a stroke diagnosis?: No VTE Prior VTE?: No VTE Risk Level:: Medical - moderate - high VTE Device Contraindication: N/A - Device Ordered VTE Drug Contraindication: N/A - Med Ordered
--- NOTE | 2023-08-08 08:32 | HO.POSTANES ---
Post Anesthesia Evaluation Post Anesthesia Evaluation Date of Service: 08/07/23 Vital Signs: Vital Signs Temp Pulse Resp BP Pulse Ox O2 Del Method 08/08/23 07:11 96.9 F 72 18 123/60 97 Room Air 08/08/23 04:00 98.3 F 75 16 129/62 96 Room Air Anesthesia: Regional and Spinal Mental Status: Awake Pain Control: Satisfactory (requesting repeat blocks) Nausea/Vomiting: None Hydration: Adequate Anesthesia-Related Issues: No Anes. Related Issues
--- NOTE | 2023-08-08 10:07 | HO.ANESEVENT ---
Anesthesia Event Note Date of Service: 08/08/23 Event Note: no adverse event, pt requests repeat block before discharge to help pain control. reblock of right adductor canal done for post op pain per surgeons request. time out done no pre meds given ultrasound guided right adductor block after consent was obtained and risks benefits discussed. [id number] 15 cc 0.25% marcain in block local infiltration S.C with 1% lido 2 cc tolerated well without event. Time Spent With Patient Time: Total time managing care of this patient today ____ minutes.
[2023-08-08] MEDS: Enoxaparin Sodium 40 MG/0.4 ML SYRINGE SUBCUT (10:40)
--- NOTE | 2023-08-08 11:20 | MHC.CM.PN ---
IMM delivered. Patient lives in a home w/ her . Functionally independent. Denies use of services. Has a walker in the home to be used post-op, but does not use at baseline. PCP Tristen Garcia MD No HCP. CM provided education and offered assistance. Patient declined, may reconsider prior to dc this afternoon. DP: Patient medically cleared for dc home w/ new [facility] for PT. will transport home at 2pm. RN aware.
[2023-08-08] MEDS: ondansetron HCL 4 MG/2 ML VIAL IVPUSH (11:52)
--- NOTE | 2023-08-08 12:23 | P.OP_ITS ---
Operative Note Operative Note Date of Service: 08/07/23 Narrative: Date of Service: 08/07/23 Pre-op diagnosis: Right knee OA Post-op diagnosis: same Procedure: Right TKA Implants: [place] [employer] posterior stabilized cemented 03/16/10ps/29a Surgeon: Mika Beasley MD Anesthesia: regional and spinal Was an Turning Machine Operator Helper used for this Procedure?: Yes Turning Machine Operator Helper: Verena Laird Estimated blood loss (mL): 20 Tourniquet time (min): 50 IV fluids (mL): 850 Pathology: other Condition: stable Disposition: PACU Procedure in detail: The patient was brought to the operating room and prepped and draped in standard sterile fashion. A time-out was called to identify proper site proper procedure proper surgeon and IV antibiotics were administered. 1 g of IV tranexamic acid was administered. I began by making a midline incision to the retinaculum and performed a medial parapatellar arthrotomy. The patella was translated laterally and the knee was flexed up The medial and anterior compartments were eburnated. I performed a small medial peel and resected the infrapatellar fat pad. Jolynn's line was then used to drill my intramedullary femoral guide and my distal femur cut of 10 mm was made in 5 degrees of valgus while protecting the soft tissues. I then measured a #2 femur and placed my cutting guide in 3 deg ER and made my anterior posterior and chamfer cuts protecting the soft tissues at all times. I then made my box but removing the PCL. Once I was satisfied with my cuts I turned my attention to the tibia. I removed the meniscus medially and laterally and , using an external cutting guide, in line with the tibial crest and the third ray, I made my distal tibial cut in 0 deg slope of while protecting the posterior soft tissues at all times. An extension block was used to confirm appropriate amount of bony resection. I then sized a #2 tibia and once I was satisfied that there was complete tibial coverage I placed my trial and with the trial femur in place took the knee through range of motion. I was satisfied with the extension and flexion as well as the balance at 0, 30 and 90 degrees. I then turned my attention to the patella where I removed 1 cm from the undersurface of the patella and then trialed a 29a patellar button. Again the knee was taken through range of motion I was satisfied with the tracking. I then prepared the tibia with a drill and punch. A femoral bone plug was placed and the knee was irrigated copiously. I then cemented the patella, tibia and femur in standard fashion. Axial compression and a clamp were used while the cement dried. Once the cement was hard on the back table all excess cement was removed and I trialed different inserts until I selected a #11PS insert. The final insert was placed and local TXA was administered. I irrigated copiously prior to TXA. The knee was then closed with a running Quill suture, a 3 0 Vicryl and tania on the skin. Patient was then placed in sterile dressing and brought to recovery room in stable condition there were no known complications.
[2023-08-08] MEDS: LORazepam 0.5 MG TABLET PO (13:42)
== END 2023-08-08 14:40 | disposition home health service (06) | DRG 470 ==
LOC: HO.SSSA 07:51 → HO.S3 10:48
PROVIDERS: Orthopaedic Surgery; Physician Assistant; Admitting Provider Physician Assistant; PCP Internal Medicine; Visit Provider Physician Assistant
PROC: 0SRC0J9 Replacement of Right Knee Joint with Synthetic Substitute, Cemented, Open Approach (ICD-10-PCS; CPT 27447; principal; 2023-08-07 09:20)
DX: M17.11 Unilateral primary osteoarthritis, right knee (principal); E03.9 Hypothyroidism, unspecified; K21.9 Gastro-esophageal reflux disease without esophagitis; Z87.891 Personal history of nicotine dependence; G89.18 Other acute postprocedural pain; Z79.82 Long term (current) use of aspirin; Z79.890 Hormone replacement therapy; Z79.899 Other long term (current) drug therapy
CPT/HCPCS: 27447; 36415; 73560; 80048; 85025; 86850; 86900; 86901; 87640; 87641; 88305; 88311; 97110; 97116; 97161; 97530; 99499; C1713; C1776; J0131; J0171; J0665; J0736; J1100; J1170; J1650; J2250; J2405; J2704; J7120

== ENCOUNTER → 2023-08-07 07:40 | Outpatient (BNV) | payer MEDICARE, OTHER, SELFPAY | PROVIDERS: Admitting Provider Physician Assistant; PCP Internal Medicine; Visit Provider Orthopaedic Surgery | DX: Z47.1 Aftercare following joint replacement surgery (principal); Z96.651 Presence of right artificial knee joint | CPT/HCPCS: 27447; 99024; G0180 ==

== ENCOUNTER 2023-08-23 11:12 | Outpatient (AMB) | payer MEDICARE, OTHER, SELFPAY ==
--- NOTE | 2023-08-23 11:45 | MHC.OFFVIS ---
Intake Visit Reasons: 2WK PO: R TKA w/NE 08/07/23 Intake Note: Serenity a 78 year old female who presents today for a post operative right TKA on 08/07/23 with NE. Patient reports tenderness and soreness that has moved down her leg to her ankle area as well as bruising. Currently her pain is 6-7 out of 10. Allergies Penicillins Allergy (Severe, Verified 08/23/23 11:58) HIVES TO CILLINS Sulfa (Sulfonamide Antibiotics) [SULFA (SULFONAMIDE ANTIBIOTICS)] Allergy (Severe, Verified 08/23/23 11:58) ANGIOEDEMA ibuprofen Allergy (Intermediate, Verified 08/23/23 11:58) Swelling of feet gabapentin Adverse Reaction (Severe, Verified 08/23/23 11:58) Hallucinations Medication List - Last Reconciled 08/23/23 by Paulino Gregorio PA-C acetaminophen 650 mg (2 x 325 mg) PO Q6H PRN 30 days ascorbate calcium (vitamin C) 500 mg PO DAILY aspirin 81 mg PO DAILY atorvastatin 10 mg PO BEDTIME [calcium 400 mg PO BEDTIME] denosumab (Prolia) 60 mg subcut [id number] digestive enzymes 2 caps PO TIDAC docusate sodium 100 mg PO BID 30 days doxylamine succinate (Sleep Aid (doxylamine)) 12.5 mg PO BEDTIME PRN enoxaparin 40 mg (0.4 mL) subcut Q24H 42 days ezetimibe 10 mg PO DAILY levothyroxine 88 mcg PO DAILY@0600 lorazepam 0.5 mg PO BEDTIME PRN magnesium oxide 500 mg PO BEDTIME iykveqhy-oyg-rkxx-FA-vit K-lut 8 mg iron-400 mcg-50 mcg (Multivitamin Women 50 Plus) 1 tab PO DAILY oxycodone 5 mg PO Q8H PRN 10 days pantoprazole 20 mg PO DAILY@0630 polyethylene glycol 3350 (Miralax) 17 grams PO DAILY walker Folding Front wheeled walker HPI HPI 2WK PO: R TKA w/NE 08/07/23: Details: 78-year-old female who returns to the office today for post-op right TKA, 08/07/[address] Beasley. She continues to have pain in her knee and rates the pain as about 7 on the scale of 0-10. She reports her tenderness and soreness has moved down to her leg and ankle. She also notices bruising on her leg. Her pain is aggravated with wearing her shoe and bandaging her knee. She has no other concerns today. [facility] Medical History Diverticulosis Hypothyroidism History of fibromyalgia Hx pulmonary embolism (~1971) Osteoarthritis Osteoporosis Diverticulosis GERD (gastroesophageal reflux disease) History of palpitations Constipation Insomnia Personal history of COVID-19 (~09/2020) Anxiety Raynaud's disease Elevated cholesterol Neuropathy Surgical History Hx of tonsillectomy History of esophagogastroduodenoscopy (EGD) Hx of colonoscopy Hx of bilateral cataract extraction Family History Brother Complication of anesthesia Social History Household Members: Spouse and Children Housing: House Are you a primary patient centered care specialist to a significant other at home: No Do you presently have visiting nurse or other home services: No 75 years or older and lives alone: No Comment: aware of trip hazards Patient Tobacco Use Status: Former Tobacco user Tobacco use type: Cigarette service: No Current occupational status: retired Current occupation: rt hand Review of Systems Const All systems reviewed & are unremarkable except as noted in HPI and below Physical Exam Extrem Other: Right knee: Incision clean, dry and intact. No redness or drainage. ROM is 0-95 degrees. Calf supple, nontender. NVI. Assessment & Plan Assessment & Plan (1) Status post total knee replacement, right: Code(s): Z96.651 - Presence of right artificial knee joint Category: Surgical Plan Cool removed, steri strips applied. She will begin to transition to Outpatient PT to continue working on Gait training, ROM and quad strength. No driving for another 4 weeks. She will require ppx abx for dental procedures. She will f/u in 4 weeks, sooner if needed. Orders: Orders PT Evaluation and Treatment Today Z96.651 - Presence of right artificial knee joint Patient Instructions: Scribed for Amilcar-Mara Gregorio PA-C, by Janusz Abhang, medical billing manager, on 08/23/2023 at 11:30 AM EST.? I, Paulino Gregorio PA-C, have personally reviewed and agree with the information entered by the scribe. Coding Level of Care Code Global (32999) Diagnoses Status post total knee replacement, right Z96.651
== END 2023-08-23 12:14 | disposition home or self-care (01) ==
PROVIDERS: PCP Internal Medicine; Visit Provider Physician Assistant
DX: Z96.651 Presence of right artificial knee joint (principal)
CPT/HCPCS: 99024

== ENCOUNTER → 2023-08-23 11:12 | Outpatient (BNVA) | payer MEDICARE, OTHER, SELFPAY | PROVIDERS: PCP Internal Medicine; Visit Provider Physician Assistant | DX: Z47.1 Aftercare following joint replacement surgery (principal); Z96.651 Presence of right artificial knee joint | CPT/HCPCS: 99212 ==

== ENCOUNTER 2023-09-13 09:50 | Outpatient (REF) | payer MEDICARE, OTHER, SELFPAY ==
--- NOTE | ~2023-09-13 | XR_ITS ---
EXAMINATION: XR KNEE, RIGHT CLINICAL INFORMATION: Reason for Exam M25.561 - Pain in right knee COMPARISON: Knee radiographs 08/07/2023 TECHNIQUE: 1 view of the bilateral knees standing. 2 views of the right knee. FINDINGS: RIGHT KNEE: No acute fracture or dislocation. Chronic right femoral diaphyseal fracture deformity again seen. Status post total knee arthroplasty in anatomic alignment. No evidence of hardware fracture. Moderate suprapatellar joint effusion. A few nonspecific amorphous foci of mineralization in the soft tissues about the knee. LEFT KNEE: Limited single view of the left knee is unremarkable. XR/XR knee RT 3V IMPRESSION: RIGHT KNEE: Status post total knee arthroplasty in anatomic alignment. No evidence of hardware fracture. Moderate suprapatellar joint effusion.
== END 2023-09-13 09:51 | disposition home or self-care (01) ==
LOC: HO.HOSX 09:50
PROVIDERS: Visit Provider Orthopaedic Surgery
DX: M25.561 Pain in right knee (principal); Z96.651 Presence of right artificial knee joint
CPT/HCPCS: 73562; 99212

== ENCOUNTER 2023-09-13 09:54 | Outpatient (AMB) | payer MEDICARE, OTHER, SELFPAY ==
--- NOTE | 2023-09-13 09:55 | A.OFFVIS_ITS ---
Vital Signs 09/13/23 10:19 Height 5 ft 5 in Weight 132 lb BMI 22.0 Intake Visit Reasons: 6WK PO: R TKA w/NE 08/07/23 Intake Note: Serenity a 78 year old female who presents today for a post operative right TKA on 08/07/23 with NE. Patient reports that she is improving, but is frustrated that she is not further along than she is. She is weaning from the Oxycodone and feels a bit shakey. The knee and lower leg is consistently swollen, she uses ice and elevation which only mildly helps. Patient took a fall the day after her surgery, she explains that this was a significant fall where she landed on her right side. She was seen at an urgent care for right ankle pain. She was told there was not fracture of the ankle but she continues to have pain. She took her last Oxycodone 5 mg last night and was only taking one Q24h , at night is struggling with restless legs. She is hoping for something to help with the restless legs. Allergies Penicillins Allergy (Severe, Verified 09/13/23 10:22) HIVES TO CILLINS Sulfa (Sulfonamide Antibiotics) [SULFA (SULFONAMIDE ANTIBIOTICS)] Allergy (Severe, Verified 09/13/23 10:22) ANGIOEDEMA ibuprofen Allergy (Intermediate, Verified 09/13/23 10:22) Swelling of feet gabapentin Adverse Reaction (Severe, Verified 09/13/23 10:22) Hallucinations HPI HPI 6WK PO: R TKA w/NE 08/07/23: Details: Serenity a 78 year old female who presents today for a post operative right TKA on 08/07/23 with NE. Patient reports that she is improving, but is frustrated that she is not further along than she is. She is weaning from the Oxycodone and feels a bit shakey. The knee and lower leg is consistently swollen, she uses ice and elevation which only mildly helps. Patient took a fall the day after her surgery, she explains that this was a significant fall where she landed on her right side. She was seen at an urgent care for right ankle pain. She was told there was not fracture of the ankle but she continues to have pain. She took her last Oxycodone 5 mg last night and was only taking one Q24h , at night is struggling with restless legs. She is hoping for something to help with the restless legs. [facility] Medical History Diverticulosis Hypothyroidism History of fibromyalgia Hx pulmonary embolism (~1971) Osteoarthritis Osteoporosis Diverticulosis GERD (gastroesophageal reflux disease) History of palpitations Constipation Insomnia Personal history of COVID-19 (~09/2020) Anxiety Raynaud's disease Elevated cholesterol Neuropathy Surgical History Hx of tonsillectomy History of esophagogastroduodenoscopy (EGD) Hx of colonoscopy Hx of bilateral cataract extraction Family History Brother Complication of anesthesia Social History Household Members: Spouse and Children Housing: House Are you a primary health care facility administrator to a significant other at home: No Do you presently have visiting nurse or other home services: No 75 years or older and lives alone: No Comment: aware of trip hazards Patient Tobacco Use Status: Former Tobacco user Tobacco use type: Cigarette service: No Current occupational status: retired Current occupation: rt hand Physical Exam Vital Signs: BMI result Body Mass Index 22.0 Extrem Other: right knee 0-115 deg motion inc c/d/i stable to v/v stress Results Reviewed Results Reviewed: I personally reviewed relevant radiographs. Right total knee arthroplasty in expected post operative position with no hardware complications or evidence of loosening Assessment & Plan Assessment & Plan (1) Status post total knee replacement, right: Code(s): Z96.651 - Presence of right artificial knee joint Category: Surgical Plan: May d/c lovenox WIll wean narcotics Will try Lyrica 75 qhs prn neuropthy Orders: Orders XR knee RT 3V Today M25.561 - Pain in right knee Coding Level of Care Code Global (29249) Diagnoses Status post total knee replacement, right Z96.651
[2023-09-13 10:19] VITALS: BMI 22.0
== END 2023-09-13 10:46 | disposition home or self-care (01) ==
PROVIDERS: PCP Internal Medicine; Visit Provider Orthopaedic Surgery
DX: Z96.651 Presence of right artificial knee joint (principal)
CPT/HCPCS: 99024

== ENCOUNTER 2023-10-11 10:00 | Outpatient (AMB) | payer OTHER, MEDICARE, SELFPAY ==
--- NOTE | 2023-10-11 10:04 | MHC.OFFVIS ---
Intake Visit Reasons: PO- R TKA w/NE 08/07/23- Increased px & Swelling Intake Note: Serenity a 78 year old female who presents today for a follow up s/p right TKA on 08/07/23 with NE. Patient reports that she continues to have pain and swelling. Her knee is constantly hot to the touch and her right foot intermittently becomes hot to the touch. RLS increasing, recently prescribed amitriptyline 10mg with some relief. Finds no relief with Tylenol and Aleve. Allergies Penicillins Allergy (Severe, Verified 10/11/23 10:35) HIVES TO CILLINS Sulfa (Sulfonamide Antibiotics) [SULFA (SULFONAMIDE ANTIBIOTICS)] Allergy (Severe, Verified 10/11/23 10:35) ANGIOEDEMA ibuprofen Allergy (Intermediate, Verified 10/11/23 10:35) Swelling of feet gabapentin Adverse Reaction (Severe, Verified 10/11/23 10:35) Hallucinations Medication List - Last Reconciled 10/11/23 by Paulino Gregorio PA-C acetaminophen 650 mg (2 x 325 mg) PO Q6H PRN 30 days amitriptyline 10 mg PO BEDTIME ascorbate calcium (vitamin C) 500 mg PO DAILY aspirin 81 mg PO DAILY atorvastatin 10 mg PO BEDTIME [calcium 400 mg PO BEDTIME] denosumab (Prolia) 60 mg subcut [id number] digestive enzymes 2 caps PO TIDAC docusate sodium 100 mg PO BID 30 days doxylamine succinate (Sleep Aid (doxylamine)) 12.5 mg PO BEDTIME PRN ezetimibe 10 mg PO DAILY levothyroxine 88 mcg PO DAILY@0600 lorazepam 0.5 mg PO BEDTIME PRN magnesium oxide 500 mg PO BEDTIME xigabxol-csy-saal-FA-vit K-lut 8 mg iron-400 mcg-50 mcg (Multivitamin Women 50 Plus) 1 tab PO DAILY pantoprazole 20 mg PO DAILY@0630 polyethylene glycol 3350 (Miralax) 17 grams PO DAILY pregabalin (Lyrica) 50 mg PO BEDTIME walker Folding Front wheeled walker HPI HPI PO- R TKA w/NE 08/07/23- Increased px & Swelling: Details: 78-year-old female who returns to the office today for post-op right TKA, 08/07/[address] Beasley. She continues to have pain and swelling in her knee that is constantly warm to touch. She also reports her right foot intermittently becomes hot to touch. She was given amitriptyline 10 mg from her PCP for RLS with some relief. She finds no relief with Benadryl, Tylenol and Aleve. She has a history of RLS that has been worsening. [facility] Medical History Diverticulosis Hypothyroidism History of fibromyalgia Hx pulmonary embolism (~1971) Osteoarthritis Osteoporosis Diverticulosis GERD (gastroesophageal reflux disease) History of palpitations Constipation Insomnia Personal history of COVID-19 (~09/2020) Anxiety Raynaud's disease Elevated cholesterol Neuropathy Surgical History Hx of tonsillectomy History of esophagogastroduodenoscopy (EGD) Hx of colonoscopy Hx of bilateral cataract extraction Family History Brother Complication of anesthesia Social History Household Members: Spouse and Children Housing: House Are you a primary rn wound care to a significant other at home: No Do you presently have visiting nurse or other home services: No 75 years or older and lives alone: No Comment: aware of trip hazards Patient Tobacco Use Status: Former Tobacco user Tobacco use type: Cigarette service: No Current occupational status: retired Current occupation: rt hand Review of Systems Const All systems reviewed & are unremarkable except as noted in HPI and below Physical Exam Extrem Other: Right knee: Incision well healed. There is mild soft tissue swelling. No joint effusion, no erythema. ROM is 0-100 degrees. Calf supple, nontender. NVI. Assessment & Plan Assessment & Plan (1) Status post total knee replacement, right: Code(s): Z96.651 - Presence of right artificial knee joint Category: Surgical Plan Reassurance was given about her progress. I explained that being 2 months out of the surgery she is meeting the expectations in her pain and strength and I explained mild discomfort with activities is expected at this time. I also encouraged her to continue working on physical therapy to improve her symptoms. I also put in a prescription of compound cream and cryotherapy cold unit to help her at night. She does have an appointment on 10/[address] Beasley that she will keep and she will contact me sooner, if needed. Patient Instructions: Scribed for aPulino Gregorio PA-C, by Janusz Jones medical concierge, on 10/11/2023 at 10:00 AM EST.? I, Paulino Gregorio PA-C, have personally reviewed and agree with the information entered by the scribe. Coding Level of Care Code Global (75796) Diagnoses Status post total knee replacement, right Z96.651
== END 2023-10-11 10:50 | disposition home or self-care (01) ==
PROVIDERS: PCP Internal Medicine; Visit Provider Physician Assistant
DX: Z96.651 Presence of right artificial knee joint (principal)
CPT/HCPCS: 99024

== ENCOUNTER → 2023-10-11 10:00 | Outpatient (BNVA) | payer OTHER, MEDICARE, SELFPAY | PROVIDERS: PCP Internal Medicine; Visit Provider Physician Assistant ==

== ENCOUNTER 2023-10-25 10:19 | Outpatient (AMB) | payer OTHER, MEDICARE, SELFPAY ==
[2023-10-25 10:20] VITALS: BMI 22.0
--- NOTE | 2023-10-25 10:20 | A.OFFVIS_ITS ---
Vital Signs 10/25/23 10:20 Height 5 ft 5 in Weight 132 lb BMI 22.0 Intake Visit Reasons: PO 6WK R TKA w/NE 08/07/23 Intake Note: Serenity is a 78 year old female who presents today for a follow up s/p right TKA on 08/07/23, Patient reports that she is doing better. She continues to have a shooting nerve pain throughout her leg at night that makes it difficult to sleep. She also expresses concern of the superioir and inferior aspects of the right knee incicion being more inflamed and particularly sensative. Allergies Penicillins Allergy (Severe, Verified 10/11/23 10:35) HIVES TO CILLINS Sulfa (Sulfonamide Antibiotics) [SULFA (SULFONAMIDE ANTIBIOTICS)] Allergy (Severe, Verified 10/11/23 10:35) ANGIOEDEMA ibuprofen Allergy (Intermediate, Verified 10/11/23 10:35) Swelling of feet gabapentin Adverse Reaction (Severe, Verified 10/11/23 10:35) Hallucinations HPI HPI PO 6WK R TKA w/NE 08/07/23: Details: Serenity is a 78 year old female who presents today for a follow up s/p right TKA on 08/07/23, Patient reports that she is doing better. She continues to have a shooting nerve pain throughout her leg at night that makes it difficult to sleep. She also expresses concern of the superioir and inferior aspects of the right knee incicion being more inflamed and particularly sensative. [facility] Medical History Diverticulosis Hypothyroidism History of fibromyalgia Hx pulmonary embolism (~1971) Osteoarthritis Osteoporosis Diverticulosis GERD (gastroesophageal reflux disease) History of palpitations Constipation Insomnia Personal history of COVID-19 (~09/2020) Anxiety Raynaud's disease Elevated cholesterol Neuropathy Surgical History Hx of tonsillectomy History of esophagogastroduodenoscopy (EGD) Hx of colonoscopy Hx of bilateral cataract extraction Family History Brother Complication of anesthesia Social History Household Members: Spouse and Children Housing: House Are you a primary disabilities caregiver to a significant other at home: No Do you presently have visiting nurse or other home services: No 75 years or older and lives alone: No Comment: aware of trip hazards Patient Tobacco Use Status: Former Tobacco user Tobacco use type: Cigarette service: No Current occupational status: retired Current occupation: rt hand Physical Exam Vital Signs: BMI result Body Mass Index 22.0 Extrem Other: 0-130 degrees of motion Well-healed incision Normal gait Stable ligamentous exam Assessment & Plan Assessment & Plan (1) Status post total knee replacement, right: Code(s): Z96.651 - Presence of right artificial knee joint Category: Surgical Plan: Doing well. No additional treatment warranted at this time. Follow up in 3 months. Coding Level of Care Code Global (71743) Diagnoses Status post total knee replacement, right Z96.651
== END 2023-10-25 10:46 | disposition home or self-care (01) ==
PROVIDERS: PCP Internal Medicine; Visit Provider Orthopaedic Surgery
DX: Z96.651 Presence of right artificial knee joint (principal)
CPT/HCPCS: 99024

== ENCOUNTER → 2023-10-25 10:19 | Outpatient (BNVA) | payer OTHER, MEDICARE, SELFPAY | PROVIDERS: PCP Internal Medicine; Visit Provider Orthopaedic Surgery ==

== ENCOUNTER 2024-09-08 14:41 | Outpatient (AMB) | payer OTHER, MEDICARE, SELFPAY ==
[2024-09-08 14:43] VITALS: BMI 22.0
--- NOTE | 2024-09-08 14:43 | MHC.OFFVIS ---
Vital Signs 09/08/24 14:43 Height 5 ft 5 in Weight 132 lb BMI 22.0 Intake Visit Reasons: OV- R TKA w/NE 08/07/23-follow up Intake Note: Serenity is a 79 year old female who presents today for a follow up of her Right Knee s/p Right TKA 08/07/23. At her last visit she was doing well with no concerns. Patient reports that she is doing well. She is having flair ups with sciatica, this happens when she is dong exercises. She was seen with Family [facility] who provided her with a Bursa injection on the the right hip, They will also be treating her for sciatica. Allergies Penicillins Allergy (Severe, Verified 10/11/23 10:35) HIVES TO CILLINS Sulfa (Sulfonamide Antibiotics) (SULFA (SULFONAMIDE ANTIBIOTICS)) Allergy (Severe, Verified 10/11/23 10:35) ANGIOEDEMA ibuprofen Allergy (Intermediate, Verified 10/11/23 10:35) Swelling of feet gabapentin Adverse Reaction (Severe, Verified 10/11/23 10:35) Hallucinations HPI HPI OV- R TKA w/NE 08/07/23-follow up: Details: Serenity Roldan is 13 mo s/p right TKA. SHe has done well and has been progressing but is still not satsfied with her knee. She states is is sore after extended activity and that she does not feel that it has been successful. She denies fever and chills. She states there has been lateral ITB pain ongoing and that she has been working hard with PT to decrease the ITB tightness. This has been improving until she has had sciatic pain for the past 2 weeks. She feels that she gets better with her hip/ITB and then worse with her knee. She is trying to strenghten her leg but frustrated. [facility] Medical History Diverticulosis Hypothyroidism History of fibromyalgia Hx pulmonary embolism (~1971) Osteoarthritis Osteoporosis Diverticulosis GERD (gastroesophageal reflux disease) History of palpitations Constipation Insomnia Personal history of COVID-19 (~09/2020) Anxiety Raynaud's disease Elevated cholesterol Neuropathy Surgical History Hx of tonsillectomy History of esophagogastroduodenoscopy (EGD) Hx of colonoscopy Hx of bilateral cataract extraction Family History Brother Complication of anesthesia Social History Household Members: Spouse and Children Housing: House Are you a primary associate director career services to a significant other at home: No Do you presently have visiting nurse or other home services: No 75 years or older and lives alone: No Comment: aware of trip hazards Patient Tobacco Use Status: Former Tobacco user Tobacco use type: Cigarette service: No Current occupational status: retired Current occupation: rt hand Physical Exam Vital Signs: BMI result Body Mass Index 22.0 Extrem Other: Inc c/d/i 0-130 right knee stable to v/v stress right leg is atrophied compared to left ( this is not new) Assessment & Plan Assessment & Plan (1) Status post total knee replacement, right: Code(s): Z96.651 - Presence of right artificial knee joint Category: Surgical Plan: This is a pleasant and healthy 79 yo F 13 mo s/p right TKA. Her right knee is stable with excellent motion and no swelling or pain. She feels that the knee limits her however and prevents her from walking long distances and if often sore when exercising. She has had difficulty recovering and she has intermittant sciatica and ITB syndrome and ipsilateral bursitis. There are no objectively concerning findings and I suspect that her soreness is partially related to her history of femur fracture and altered gait mechanics. I recommend gentle activity. I see no need to continue to push strengthening with PT. Serenity Roldan is a very driven and motivated 79 yo but I do not see a benefit to endless exercising. She should walk and enjoy her remarkable health. Coding Level of Care Code Est Pt Level 3 (91848) Diagnoses Status post total knee replacement, right Z96.651
--- OUTSIDE RECORDS SUMMARY | 2024-09-08 15:15 | XMS_ITS ---
Author Name [facility] Organization Unknown Care Team Organization Name Specialty Phone Email Start Date End Da marjan [facility] IMELDA BROWNING Primary [facility]
--- OUTSIDE RECORDS SUMMARY | 2024-09-08 15:15 | XMS_ITS | Encounter Summary ---
Author Organization Formerly [facility] Address [address] [place] [address] Care Team Providers Care Semiconductor Development Technician Name Role Phone Franck Rush Primary Care Provider [phone] Encounter Details Date Type Department Care Team (Late st Contact Info) Description 06/08/2022 Scanned Document Franck Dunlap Department of Internal Medicine [place] [address] [place] [id number] Franck Rush [address] [place] [address] Social History Tobacco Use Types Packs/Day Years Used Date Smoking Tobacco: Never Assessed Comments Unknown Sex and Gender Information Value Date Recorded Sex Assigned at Not on file Legal Sex Female 4:38 PM EDT Gender Identity Not on file Sexual Orientation Not on file documented as of this encounter Plan of Treatment Not on file documented as of this encounter Visit Diagnoses Not on filedocumented in this encounter Care Teams Semiconductor Development Technician Relationship Specialty Start Date End Date Franck Rush [address] [place] [address] PCP - General documented as of this encounter
--- OUTSIDE RECORDS SUMMARY | 2024-09-08 15:15 | XMS_ITS | Patient Health Record ---
Author Organization [facility] Address [address] [facility] [address] [place] [address] Care Team Providers Care Apron Man Name Role Phone Felix Sandoval Primary Care Provider AMARI Parikh Unavailable [phone] Allergies Allergen (clinical drug ingredient) Drug/Non Drug Allergy documented on EMR Reaction Allergy Type Onset Date Status amoxicillin Amoxicillin Unknown Drug Allergy Act mandeep ampicillin Ampicillin Unknown Drug Allergy Activ e dicloxacillin Dicloxacillin Sodium Unknown Drug Allergy Active gabapentin Gabapentin dizziness Drug Allergy Activ e nafcillin Nafcillin Sodium Unknown Drug Allergy Active oxacillin Oxacillin Sodium Unknown Drug Allergy Active Piperacillin Sodium Unknown Drug Allergy Active Sulfa Unknown Drug Allergy Active penicillin Unknown Drug Allergy Active Reason For Referral No Information Medications Medication SIG (Take, Route, Frequency, Duration) Notes Start Date End Date Status DULoxetine HCl 30 MG 1 capsule Orally On ce a day for 30 day(s) 06/25/2018 Active Vitamin D 1 tablet Orally Once a day Active Gabapentin 100 MG 1 capsule Orally Thr ee times a day for 30 Active Aspir-81 81 MG 1 tablet Orally Once a day for 30 day(s) Active MiraLax - as directed Orally O nce a day Active tiZANidine HCl 2 MG 1 tablet as needed Orally at night before bed Active Centrum Silver - as directed Orally Active Calcium 600 MG 1 tablet with meals Orally Once a day Active Vitamin B12 1 tablet Orally Once a day Active Fish Oil 1 tablet Orally Once a day Active Levothyroxine Sodium 88 MCG 1 tablet on an empty stomach in the morning Orally Once a day for 30 day(s) Active Vitamin C 500 MG 1 tablet Orally Once a day Active Probiotic 1 tablet Orally Once a day Active LORazepam 0.5 MG 1 tablet at bedtime as needed Orally Once a day Active Cyclobenzaprine HCl 10 MG 1 tablet Orall y as needed Active Pantoprazole Sodium 40 MG 1 tablet Orall y Once a day for 30 day(s) Active Pantoprazole Sodium 40 MG 1 tablet Orall y Once a day Active Social History Tobacco Use: Social History Observation Description Date Details (start date - stop date) Former Smoker NA - NA smoking Question Answer Notes Are you a: former smoker How long has it been since you last smoked? > 10 years Additional Findings: Tobacco Non-User Current no n-smoker alcohol Question Answer Notes Did you have a drink containing alcohol in the p ast year? No Points 0 Interpretation Negative Problems Problem Type SNOMED Code ICD Code Onset Dates Problem Status W/U Status Risk Notes Problem Numbness (87516169) Numbness (R20.0) Active con firmed Problem Restless legs syndrome (10708884) Restless leg syndrome (G25.81) Active confirmed Problem Hypothyroidism (51231061) Hypothyroidism (E03.9) Active confirmed Problem Gastroesophageal reflux disease (941098450) GERD (gastroesophageal reflux disease) (K21.9) Active confirmed Problem Lumbar radiculopathy (917361606) Lumbar radiculopathy (M54.16) Active confirmed Problem Hemiparesis (55818117) Hemiparesis (G81.90) Active confirmed Plan Of Treatment Pending Test Test Name Order Date EMG-NCT Bilateral Upper Extremities 09/2018 MRI Cervical Spine without contrast 04/12 MRI Lumbar Spine without contrast 2018 Insurance Providers Payer Name Payer Address Payer Phone Subscriber Number Group Number Insured Name Patient Relationship to Insured Coverage Start Date Coverage End Date MEDICARE [address] [place] [phone] [id number] Serenity Albrecht Self - patient is the insured [facility] [address] [place] [address] [phone] [id number] Serenity Albrecht Self - patient is the insured Medical (General) History Medical History History ICD Code Fibromyalgia Insomnia Colon polyps Diverticulitis Low bone density GERD Raynaud's syndrome Osteoporosis Sciatica Cystocele Metatarsalgia Osteopenia Surgical History Surgery Date(Month/Year) Cataract Surgery Hospitalization History Reason Date(Month/Year) Torn meniscus Torn rotator cuff Fractured femur
--- OUTSIDE RECORDS SUMMARY | 2024-09-08 15:15 | XMS_ITS | Encounter Summary ---
Author Organization [facility] Address [address] [place] [address] Care Team Providers Care Medical Accountant Name Role Phone Tristen Garcia MD Primary Care Provider [phone] Encounter Details Date Type Department Care Team (Late Contact Info) Description 08/31/2024 Nurse Triage Adult Medicine [address] [address] Tristen Garcia MD [address] [place] [address] Social History Tobacco Use Types Packs/Day Years Used Date Smoking Tobacco: Former Cigarettes Q uit: 03/27/1990 Smokeless Tobacco: Never Alcohol Use Standard Drinks/Week Comments Yes 1.7 (1 standard drink = 0.6 oz p ure alcohol) Comments Unknown Sex and Gender Information Value Date Recorded Sex Assigned at Not on file Legal Sex Female 2:21 PM EST Gender Identity Not on file Sexual Orientation Not on file documented as of this encounter Plan of Treatment Upcoming Encounters Date Type Department Care Team (Late Contact Info) Description 09/11/2024 10:00 AM EDT Office Visit Gastroenterology - [place] [address] [place] [phone] Bebo Smith DO [address] [place] [address] documented as of this encounter Visit Diagnoses Not on filedocumented in this encounter Care Teams Medical Accountant Relationship Specialty Start Date End Date Tristen Garcia MD [address] [place] [address] PCP - General Internal Medicine 06/24/21 documented as of this encounter
--- OUTSIDE RECORDS SUMMARY | 2024-09-08 15:15 | XMS_ITS | Patient Health Record ---
Author Organization [facility] Address [address] [place] [address] Care Team Providers Care Hot Walker Name Role Phone Caitlin Blum Primary Care Provider [phone] Allergies Allergen (clinical drug ingredient) Drug/Non Drug Allergy documented on EMR Reaction Allergy Type Onset Date Status Penicillin Unknown Drug Allergy Active sulfacetamide Sulfacetamide Unknown Drug Allergy Active Results Component Value Reference Range Notes TSH (899) Reviewed date:01/05/2024 10:33:05 AM Interpretation: Performing Lab:TP, [id number] Franklin Degroot MD Notes/Report: FASTING:YES FASTING: YES TSH 3.06 0.40-4.50 mIU/L CBC (INCLUDES DIFF/PLT) (639 9) Reviewed date:01/05/2024 10:33:05 AM Interpretation: Performing Lab:TP, [id number] Franklin Degroot MD Notes/Report: FASTING:YES FASTING: YES WHITE BLOOD CELL COUNT 4.8 3.8-10.8 Thousand/ uL RED BLOOD CELL COUNT 4.27 3.80-5.10 Million/uL HEMOGLOBIN 13.2 11.7-15.5 g/dL HEMATOCRIT 40.2 35.0-45.0 % MCV 94.1 80.0-100.0 fL MCH 30.9 27.0-33.0 pg MCHC 32.8 32.0-36.0 g/dL For adults, a slight decrease in the calculated MCHC value (in the range of 30 to 32 g/dL) is most likely not clinically significant; however, it should be interpreted with caution in correlation with other red cell parameters and the patient's clinical condition. RDW 13.2 11.0-15.0 % PLATELET COUNT 279 140-400 Thousand/uL MPV 9.4 7.5-12.5 fL ABSOLUTE NEUTROPHILS 3096 0646-0324 cells/uL ABSOLUTE LYMPHOCYTES 4734 075-2610 cells/uL ABSOLUTE MONOCYTES 437 200-950 cells/uL ABSOLUTE EOSINOPHILS 197 15-500 cells/uL ABSOLUTE BASOPHILS 29 0-200 cells/uL NEUTROPHILS 64.5 LYMPHOCYTES 21.7 MONOCYTES 9.1 EOSINOPHILS 4.1 BASOPHILS 0.6 COMPREHENSIVE METABOLIC PANE L (59732) Reviewed date:01/05/2024 10:33:05 AM Interpretation: Performing Lab:TP, [id number], [id number] Franklin Degroot MD Notes/Report: FASTING:YES FASTING: YES GLUCOSE 86 65-99 mg/dL Fasting reference interval UREA NITROGEN (BUN) 20 7-25 mg/dL CREATININE 0.63 0.60-1.00 mg/dL EGFR 91 > OR = 60 mL/min/1.73m2 BUN/CREATININE RATIO SEE NOTE: 6-22 (calc) Not Reported: BUN and Creatinine are within reference range. SODIUM 144 135-146 mmol/L POTASSIUM 4.6 3.5-5.3 mmol/L CHLORIDE 105 98-110 mmol/L CARBON DIOXIDE 31 20-32 mmol/L CALCIUM 9.3 8.6-10.4 mg/dL PROTEIN, TOTAL 6.0 6.1-8.1 g/dL ALBUMIN 4.0 3.6-5.1 g/dL GLOBULIN 2.0 1.9-3.7 g/dL (calc) ALBUMIN/GLOBULIN RATIO 2.0 1.0-2.5 (calc) BILIRUBIN, TOTAL 0.3 0.2-1.2 mg/dL ALKALINE PHOSPHATASE 46 37-153 U/L AST 19 10-35 U/L ALT 18 6-29 U/L LIPID PANEL, STANDARD (7600) Reviewed date:01/05/2024 10:33:05 AM Interpretation: Performing Lab:[facility], [id number], [id number] Franklin Degroot MD Notes/Report: FASTING:YES FASTING: YES CHOLESTEROL, TOTAL 170 <200 mg/dL HDL CHOLESTEROL 87 > OR = 50 mg/dL TRIGLYCERIDES 82 <150 mg/dL LDL-CHOLESTEROL 67 Reference range: <100 Desirable range <100 mg/dL for primary prevention; <70 mg/dL for patients with CHD or diabetic patients with > or = 2 CHD risk factors. LDL-C is now calculated using the Madhav calculation, which is a validated novel method providing better accuracy than the Friedewald equation in the estimation of LDL-C. Raul SOLORIO et al. FILI. 2013;310(04): 9881-1465 (http://Veeda.Kno/faq/PKX831) CHOL/HDLC RATIO 2.0 <5.0 (calc) NON HDL CHOLESTEROL 83 <130 mg/dL (calc) For patients with diabetes plus 1 major ASCVD risk factor, treating to a non-HDL-C goal of <100 mg/dL (LDL-C of <70 mg/dL) is considered a therapeutic option. Reason For Referral No Information Medications Medication SIG (Take, Route, Frequency, Duration) Notes Start Date End Date Status Lipitor 10 MG 1 tablet Orally Once a day; Duration: 90 days 06/20/2024 Active LORazepam 0.5 MG 1 tablet Orally At b edtime for anxiety; Duration: 90 days 07/09/2024 Active hydrOXYzine HCl 25 MG 1 tablet as needed Orally Once a day Active Pantoprazole Sodium 20 MG 1 tablet Orall y Once a day; Duration: 90 days Active Prolia 60 MG/ML as directed Subcutaneous Active Cyclobenzaprine HCl 5 MG 1 tablet at bed time as needed Orally Once a day Active Ramelteon 8 MG 1 tablet At bedtime for insomnia; Duration: 90 days Active Synthroid 88 MCG 1 tablet Once a day; Duration: 90 days Active Problems Problem Type SNOMED Code ICD Code Onset Dates Problem Status W/U Status Risk Notes Problem Hypothyroidism (04048376) Hypothyroidism, unspecified (E03.9) Active confirmed Problem Hyperlipidemia (66601166) Hyperlipidemia, unspecified (E78.5) Active confirmed Problem Insomnia (065397427) Insomnia, unspecified (G47.00) Active confirmed Problem Gastro-esophageal reflux disease without esophagitis (723343496) Gastro-esophageal reflux disease without esophagitis (K21.9) Active confirmed Problem Diverticular disease of colon (571189483) Diverticulosis of large intestine without perforation or abscess without bleeding (K57.30) Active confirmed Problem COVID-19 (923452756) COVID-19 (U07.1) Active confirmed Problem Age-related osteoporosis (734118545) Osteoporosis, unspecified osteoporosis type, unspecified pathological fracture presence (M81.0) Active confirmed Problem Low back pain (finding) (534755124) Lumbar back pain (M54.50) Active confirmed Problem Fatigue (91444478) Fatigue, unspecified type (R53.83) Active confirmed Problem Generalized osteoarthritis (222619764) Osteoarthritis, generalized (M15.9) Active confirmed Problem Pain in limb (97825314) Leg pain, right (M79.604) Active confirmed Problem Degeneration of intervertebral disc of lumbar region with discogenic back pain and lower extremity pain (M51.362) Active confirmed Vital Signs Heart Rate 87 /min 05/14/2024 Respiratory Rate 14 /min 05/14/2024 Blood pressure diastolic 80 mm Hg 05/14/2024 Oximetry 97 % 05/14/2024 Height-cm 165.1 cm 05/14/2024 Weight-kg 65.32 kg 05/14/2024 Height 65 in 05/14/2024 Blood pressure systolic 110 mm Hg 05/14/2024 Weight 144 lbs 05/14/2024 BMI 23.96 kg/m2 05/14/2024 Encounters Encounter Location Date Provider Diagnosis [facility] [address] [facility] [place] [address] 12/20/2023 Jess Hawke Medicare annual well ness visit, subsequent Z00.00 ; Leg pain, right M79.604 and Hordeolum externum of right lower eyelid H00.012 [facility] [address] [facility] [place] [place] [address] 04/08/2024 [facility] Lumbar back pain M54 .50 ; Degeneration of intervertebral disc of lumbar region with discogenic back pain and lower extremity pain M51.362 ; Leg pain, right M79.604 ; Fatigue, unspecified type R53.83 and Insomnia, unspecified G47.00 [facility] [address] [place] [address] 05/14/2024 [facility] Dermatitis L30.9 ; Eczema, unspecified type L30.9 ; Hypothyroidism, unspecified E03.9 ; Osteoarthritis, generalized M15.9 and Insomnia, unspecified G47.00 [facility] [address] [place] [address] 12/25/2023 [facility] [address] [place] [address] 12/28/2023 [facility] [address] [place] [address] 12/31/2023 [facility] [address] [place] [address] 01/05/2024 [facility] [address] [place] [address] 04/04/2024 [facility] [address] [place] [address] 05/20/2024 [facility] [address] [place] [address] 05/27/2024 [facility] [address] [place] [address] 06/20/2024 [facility] [address] [place] [address] 06/21/2024 [facility] [address] [facility] [place] [address] 07/09/2024 [facility] Assessments Encounter Date Diagnosis (ICD Code) Assessment Notes Treatment Notes Treatment Clinical Notes Section Notes 12/20/2023 Medicare annual wellness visit, subsequent (ICD-10 - Z00.00) Health maintenance and preventative management reviewed check labs and follow-up recommendations 12/20/2023 Leg pain, right (ICD-10 - M79.604) PT Eval & Tx 04/08/2024 Lumbar back pain (ICD-10 - M54.50) Patient education treatment and diagnostic options reviewed 04/08/2024 Degeneration of intervertebral disc of lumbar region with discogenic back pain and lower extremity pain (ICD-10 - M51.362) Obtain imaging (RAVE) and follow up recommendations 05/14/2024 Dermatitis (ICD-10 - L30.9) Patient education treatment and diagnostic options reviewed 05/14/2024 Eczema, unspecified type (ICD-10 - L30.9) 05/14/2024 Hypothyroidism, unspecified (ICD-10 - E03.9) Continued medical management 04/08/2024 Leg pain, right (ICD-10 - M79.604) Modify activities and home exercise program 12/20/2023 Hordeolum externum of right lower eyelid (ICD-10 - H00.012) 04/08/2024 Fatigue, unspecified type (ICD-10 - R53.83) Behavioral modification and daily exercise 05/14/2024 Osteoarthritis, generalized (ICD-10 - M15.9) Modify activity and home exercises 05/14/2024 Insomnia, unspecified (ICD-10 - G47.00) Behavioral modification and sleep hygiene 04/08/2024 Insomnia, unspecified (ICD-10 - G47.00) Plan Of Treatment No Information Insurance Providers Payer Name Payer Address Payer Phone Subscriber Number Group Number Insured Name Patient Relationship to Insured Coverage Start Date Coverage End Date Medicare [address] [place]HA [place] [id number] JAVIER MCNEAL Self - patient is the insured [facility] Indemnity / Unicare [address] [place] [address] [id number] JAVIER MCNEAL Self - patient is the insured Medical (General) History Medical History History ICD Code Hypothyroidism, unspecified E03.9 Hyperlipidemia, unspecified E78.5 Osteoporosis, unspecified os teoporosis type, unspecified pathological fracture presence M81.0 Diverticulosis of large inte robert without perforation or abscess without bleeding K57.30 Gastro-esophageal reflux disease without esophagitis K21.9 COVID-19 U07.1 Osteoarthritis, generalized M15.9 Surgical History Surgery Date(Month/Year) Right TKA
--- OUTSIDE RECORDS SUMMARY | 2024-09-08 15:15 | XMS_ITS | Data Portability ---
Author Organization [place] [facility] Lambert, SUNNY CHAVEZ MD Address [address] [facility] [place] [address] Care Team Providers Care Roto Rooter Operator Name Role Phone DAKOTA WALKER Primary Care Provider Assessment Encounter Date Assessment Date Assessment LastModified by Organization Details LastModified Time 03/03/2022 03/03/2022 Impression and plan: 1. Patient with a history of multiple symptoms including dizziness, sensation of plugged up ears and head, fatigue, headaches, brain fog with short-term memory issues MCI w/ MMSE score of 28/30. She feels these symptoms began in September 2020. She has had extensive workup with no etiology found. ? Possibly postviral symptoms i.e. long Covid. Overall, her symptoms have slowly been improving, though she still gets symptoms intermittently but at longer intervals over time. She feels the last time she had headaches was 1 to 2 months ago. She thinks she may have had Covid 19 in September 2020, however, not confirmed. She never had testing for Covid 19. She has had Covid 19 vaccines x5. Her symptoms are overall improving slowly. Patient given reassurance. 2. History of idiopathic peripheral neuropathy. She reports having had evaluation for this by a neurologist 3 years ago including electrodiagnostic testing and no etiology was found. 3. History of lacunar infarct. Continue ASA 81 mg PO QD and statin therapy. 4. Return to the office as needed. [email or web address] Not available 03/03/2022 17:51:18 Plan of Treatment Reminders Order Date Submit Date Provider Last Modified By Organization Details Last Modified Time Details Appointments None record ed. Lab None record ed. Referral None record ed. Procedures None record ed. Surgeries None record ed. Imaging None record ed. Medication Orders None record ed. Patient TargetsNo targets recorded. Patient Instructions Encounter Date Encounter Id Patient Instructions Last Modified By Organization Details Last Modified Time 03/03/2022 [id number] Plan of care coordinated with patient at the end of visit. The patient voiced understanding of the above counseling and instructions. Patient agrees to treatment plan established at this visit. 75 min. total time spent with patient, reviewing medical records and test results, and documenting office visit. sage Not available 03/03/2022 12:20:18 Reason for Referral None Reported. Results Created Date Observation Date Name Description Value Unit Range Abnormal Flag Note LastModifiedBy Organization Detail LastModifiedTime 03/03/19 23 MRI, brain , w/wo contr ast No observ ation record ed. jwicks Not Available 2022 11:51:19 Result Notes None recorded. Procedures Surgical History Date Name Laterality Status Provider Name and Address Organization Details Recorded Time 03/03/19 MINI MENTAL STATUS EXAM completed Sunny Chavez MD [address] [place] [address] A, [place], [address] 03/03/2022 11:39:27 Tonsillectomy completed Sandro Diaz [place] [facility] 03/03/2022 10:46:28 Cataract Surgery completed Sandro Diaz [place] [facility] 03/03/2022 10:46:34 Colonoscopy completed Sandro Diaz [place] [facility] 03/03/2022 10:46:43 Imaging Results None recorded. Procedure Notes None recorded. Medical Equipment None Reported. Allergies Allergen ID Allergen Name Allergen Category Reaction Reaction Severity Criticality Documentation Date Start Date Code Code System Note Provider Name and Address Organization Details Recorded Time 71649 Product containin g penicilli n (product) medicatio n Not available Not available Not available 03/03/2022 17495 8001 SNOMED ALYSON [facility] - [facility] 3 10:42:33 14903 Substance with sulfonami de structure and antibacte rial mechanism of action (substanc e) medicatio n Not available Not available Not available 03/03/2022 87060 8003 SNOMED ALYSON [facility] - [facility] 3 10:42:39 48462 ibuprofen medicatio n Not available Not available Not available 03/03/2022 5640 RxNorm Sandro lrema, [facility] - [facility] 10:43:23 Medications Name Sig Start Date Stop Date Status Note LastModified by Organization Details LastModified Time atorvastatin 20 mg tablet Take 1 tablet every day by oral route. active Not Available Not Available No t Available pantoprazole 20 mg tablet,delay ed release Take 2 tablets every day by oral route. active Not Available Not Available No t Available levothyroxin e 88 mcg tablet Take 1 tablet every day by oral route. active Not Available Not Available No t Available meclizine 25 mg tablet Take 1 tablet 3 times a day by oral route. active Not Available Not Available No t Available aspirin 81 mg chewable tablet Chew 1 tablet every day by oral route. active Not Available Not Available No t Available vitamin E active Not Available Not Tia ilable Not Available lorazepam active Not Available Not Tia ilable Not Available Tylenol active Not Available Not Avail able Not Available [employer] [place] 03/03 completed Not Available Not Available Not Available Vitamin D3 active Not Available Not Av ailable Not Available Culturelle active Not Available Not Av ailable Not Available multivitamin active Not Available Not Available Not Available Senna Plus active Not Available Not Av ailable Not Available ezetimibe active Not Available Not Tia ilable Not Available Dolores C active Not Available Not Avail able Not Available Citracal + D Maximum active Not Available Not Available Not Available turmeric active Not Available Not Avai lable Not Available Vitals None Recorded Social History None recorded. Functional Status Question Answer Note LastModified by Organizat ion Details LastModified Time Do you use any illicit or recreational drugs? No Information not available 03/03/2022 Do you or have you ever used any other forms of tobacco or nicotine? No Information not available 03/03/2022 What is your level of alcohol consumption? None Information not available 03/03/2022 Mental Status None recorded. Family History Relationship Description Onset Age of this Age Resolved Age Notes LastModified by Organization Details LastModified Time Father Heart disease STROKE [email or web address] Not available 2022 10:44:37 Mother Heart disease FORREST US GOETZ SS jwicks Not available 03/03/2022 10:45:07 Brother Heart disease 70 STENTS jwicks Not available 2022 10:45:28 Brother Heart disease 65 WALDRO N XIOMY= == HEART TROUBL E jwicks Not available 03/03/2022 10:46:09 Medical History Condition Response Hypothyroidism Y Stroke Y Headaches Y Gerd Y Ulcers Y Cataracts Y Neuropathy Y Memory Loss Y Gynecological HistoryNo gynecological history recorded. Obstetrics History GPAL:G 0 P 0 0 0 0 Past Encounters Encounter ID Performer Location Encounter Start Date Encounter Closed Date Diagnosis/Indication Diagnosis SNOMED-CT Code Diagnosis ICD10 Code Diagnosis Note [id number] Sunny Chavez MD [facility] [address] 03/03/2022 10:36:28 03/03/2022 11:52:37 Dizziness 058402984 R42 Sensation of blocked ear 360210862 H93.299 Fatigue 64044224 R53.83 Headache 02949133 R51.9 Idiopathic peripheral neuropathy 27168293 G60.9 Impairment of balance 38 2219502 R26.89 Minimal co gnitive impairment 492844272 R41.89 History of lacunar cerebrovascular accident 4659492277 9101 Z86.73 Health Concerns Section Related Observation LastModified by Organization Detai ls LastModified Time None Recorded Concern Status LastModified by Organization Details LastModified Time None Recorded Advance Directives Directive None Recorded Payers Insurance Date Sequence Insurance Name Policy Number Policy Velasquez Covered Member ID Velasquez Member ID Guarantor Name 03/03/2022 1 [facility] Serenity Albrecht [id number] Serenity Albrecht 03/03/2022 2 [facility] (MEDICARE SUPPLEMENT) [id number] Serenity Albrecht [id number] Serenity Albrecht 03/03/2022 1 [place] Serenity Albrecht [id number] Serenity Albrecht 03/03/2022 1 [place] Serenity Albrecht [id number] Serenity Albrecht OBGyn Episode No OBEpisode recorded.
== END 2024-09-08 15:53 | disposition home or self-care (01) ==
LOC: HO.HOS 14:42
PROVIDERS: PCP Internal Medicine; Visit Provider Orthopaedic Surgery
DX: Z47.89 Encounter for other orthopedic aftercare (principal); Z96.651 Presence of right artificial knee joint; M54.31 Sciatica, right side
CPT/HCPCS: 99213